=== PATIENT | male | born 1990 | race Asian ===

== ENCOUNTER 2020-10-04 08:45 | Outpatient (REF) | payer OTHER, SELFPAY ==
[2020-10-04 12:00] LABS: Alanine Aminotransferase 35 U/L (0-40); Albumin Level 4.4 g/dL (3.5-5.0); Alkaline Phosphatase 110 U/L (39-117); Anion Gap 12 (12-20); Aspartate Amino Transferase 22 U/L (5-37); Bilirubin Total 0.8 mg/dL (0.0-1.0); Blood Urea Nitrogen 14 mg/dL (9-16); Calcium 9.7 mg/dL (8.4-10.2); Carbon Dioxide 25 mmol/L (22-29); Chloride 96 mmol/L (96-108); Cholesterol 144 mg/dL; Estimated Glomerular Filt Rate > 60; Glucose Random 265 mg/dL (60-115); HDL Cholesterol 28 mg/dL; Potassium 4.2 mmol/L (3.3-5.1); Sodium 129 mmol/L (135-145); Total Protein 7.9 g/dL (6.5-8.0); Triglycerides 571 mg/dL
[2020-10-04 12:05] LABS: TSH reflex Free T4 0.79 uIU/mL (0.32-4.0)
== END 2020-10-04 08:46 | disposition home or self-care (01) ==
LOC: HO.WFDLDS 08:45
PROVIDERS: Visit Provider Family Medicine
DX: Z00.00 Encounter for general adult medical examination without abnormal findings (principal)
CPT/HCPCS: 36415; 80053; 80061; 84443

== ENCOUNTER 2021-06-09 10:53 | Outpatient (REF) | payer OTHER, SELFPAY ==
[2021-06-09 14:02] LABS: Estimated Average Glucose 263 mg/dL; Hemoglobin A1c % 10.8 %
[2021-06-09 14:21] LABS: Alanine Aminotransferase 38 U/L (0-40); Albumin Level 4.6 g/dL (3.5-5.0); Alkaline Phosphatase 103 U/L (39-117); Anion Gap 13 (12-20); Aspartate Amino Transferase 23 U/L (5-37); Blood Urea Nitrogen 12 mg/dL (9-16); Carbon Dioxide 24 mmol/L (22-29); Chloride 101 mmol/L (96-108); Cholesterol 140 mg/dL; Estimated Glomerular Filt Rate > 60; Glucose Fasting 305 mg/dL (60-99); HDL Cholesterol 28 mg/dL; LDL Cholesterol Calculated 86 mg/dl; Potassium 4.2 mmol/L (3.3-5.1); Sodium 134 mmol/L (135-145); Total Protein 8.2 g/dL (6.5-8.0); Triglycerides 131 mg/dL
== END 2021-06-09 10:54 | disposition home or self-care (01) ==
LOC: HO.WFDLDS 10:53
PROVIDERS: Visit Provider Family Medicine
DX: Z00.00 Encounter for general adult medical examination without abnormal findings (principal); R73.01 Impaired fasting glucose
CPT/HCPCS: 36415; 80053; 80061; 83036

== ENCOUNTER 2021-07-19 11:12 | Outpatient (REF) | payer OTHER, SELFPAY ==
[2021-07-19 13:55] LABS: Estimated Average Glucose 275 mg/dL; Hemoglobin A1c % 11.2 %
[2021-07-19 13:58] LABS: Amylase 42 U/L (28-100); Lipase 75 U/L (8-78)
== END 2021-07-19 11:13 | disposition home or self-care (01) ==
LOC: HO.WFDLDS 11:12
PROVIDERS: Visit Provider Hospitalist
DX: R10.13 Epigastric pain (principal); E11.65 Type 2 diabetes mellitus with hyperglycemia
CPT/HCPCS: 36415; 82150; 83036; 83690

== ENCOUNTER → 2021-10-16 09:23 | Outpatient (BNVA) | payer OTHER, SELFPAY | PROVIDERS: PCP Family Medicine; Referring Provider Family Medicine; Visit Provider Internal Medicine Gastroenterology | DX: K21.00 Gastro-esophageal reflux disease with esophagitis, without bleeding (principal) | CPT/HCPCS: 99202 ==

== ENCOUNTER 2021-10-31 09:19 | Outpatient (REF) | payer OTHER, SELFPAY ==
[2021-11-04 10:04] LABS: H Pylori Breath Test Positive (Negative)
== END 2021-10-31 09:20 | disposition home or self-care (01) ==
LOC: HO.LNP 09:19
PROVIDERS: PCP Family Medicine; Referring Provider Family Medicine; Visit Provider Internal Medicine Gastroenterology
DX: R10.13 Epigastric pain (principal); Z11.0 Encounter for screening for intestinal infectious diseases
CPT/HCPCS: 83013; 99211

== ENCOUNTER 2022-02-16 09:59 | Outpatient (REF) | payer OTHER, SELFPAY ==
[2022-02-18 10:14] LABS: H Pylori Breath Test Negative (Negative)
== END 2022-02-16 10:00 | disposition home or self-care (01) ==
LOC: CF 09:59
PROVIDERS: Visit Provider Internal Medicine Gastroenterology
DX: R10.13 Epigastric pain (principal); Z11.0 Encounter for screening for intestinal infectious diseases
CPT/HCPCS: 36415; 83013; 99212

== ENCOUNTER 2022-06-22 11:14 | Outpatient (REF) | payer OTHER, SELFPAY ==
[2022-06-22 14:46] LABS: Appearance Urine Clear; Color Urine Yellow; Glucose Urine UA Negative (Negative); Leukocyte Esterase Urine Negative (Negative); Nitrite Urine Negative (Negative); Specific Gravity - Urine <= 1.005 (1.005-1.025); Urine Blood Negative (Negative); Urine Ketones Negative (Negative); Urine Protein Negative (Neg-Trace)
[2022-06-22 15:05] LABS: Estimated Average Glucose 146 mg/dL; Hemoglobin A1c % 6.7 %
[2022-06-22 16:00] LABS: Creatinine Urine 21.99 mg/dL; Microalbumin Urine < 5.0 mg/L
[2022-06-22 16:18] LABS: Alanine Aminotransferase 24 U/L (0-40); Albumin Level 4.9 g/dL (3.5-5.0); Alkaline Phosphatase 69 U/L (39-117); Anion Gap 14 (12-20); Aspartate Amino Transferase 19 U/L (5-37); Bilirubin Total 0.5 mg/dL (0.0-1.0); Blood Urea Nitrogen 11 mg/dL (9-16); Calcium 10.3 mg/dL (8.4-10.2); Carbon Dioxide 26 mmol/L (22-29); Chloride 106 mmol/L (96-108); Cholesterol 117 mg/dL; Estimated Glomerular Filt Rate > 60; Glucose Fasting 103 mg/dL (60-99); HDL Cholesterol 30 mg/dL; LDL Cholesterol Calculated 74 mg/dl; Potassium 4.4 mmol/L (3.3-5.1); Prostate Specific Antigen Scr 0.51 ng/mL (<0.05-4.0); Sodium 142 mmol/L (135-145); TSH reflex Free T4 0.68 uIU/mL (0.32-4.0); Total Protein 8.1 g/dL (6.5-8.0); Triglycerides 67 mg/dL
== END 2022-06-22 11:15 | disposition home or self-care (01) ==
LOC: HO.WFDLDS 11:14
PROVIDERS: Visit Provider Family Medicine
DX: Z00.00 Encounter for general adult medical examination without abnormal findings (principal); Z12.5 Encounter for screening for malignant neoplasm of prostate; R73.01 Impaired fasting glucose; I10 Essential (primary) hypertension
CPT/HCPCS: 36415; 80053; 80061; 81003; 82043; 83036; 84153; 84443

== ENCOUNTER → 2022-08-31 13:16 | Outpatient (BNVA) | payer OTHER, SELFPAY | PROVIDERS: PCP Family Medicine; Visit Provider Internal Medicine Endocrinology, Diabetes & Metabolism | DX: E11.65 Type 2 diabetes mellitus with hyperglycemia (principal); Z79.84 Long term (current) use of oral hypoglycemic drugs | CPT/HCPCS: 82947; 99202 ==

== ENCOUNTER 2022-09-07 11:41 | Outpatient (REF) | payer OTHER, SELFPAY ==
[2022-09-10 16:29] LABS: TS Negative Control Passed; TS Panel A 9; TS Panel B 12; TS Positive Control Passed; TSpotTB Positive (Negative)
== END 2022-09-07 11:42 | disposition home or self-care (01) ==
LOC: HO.WFDLDS 11:41
PROVIDERS: Visit Provider Family Medicine
DX: Z11.1 Encounter for screening for respiratory tuberculosis (principal); Z20.1 Contact with and (suspected) exposure to tuberculosis
CPT/HCPCS: 36415; 86481

== ENCOUNTER → 2022-09-26 10:53 | Outpatient (BNVA) | payer OTHER, SELFPAY | PROVIDERS: PCP Family Medicine; Visit Provider Internal Medicine | DX: Z22.7 Latent tuberculosis (principal) | CPT/HCPCS: 99212 ==

== ENCOUNTER 2022-10-26 10:49 | Outpatient (REF) | payer OTHER, SELFPAY ==
[2022-10-26 12:52] LABS: Alanine Aminotransferase 34 U/L (0-40); Albumin Level 4.9 g/dL (3.5-5.0); Alkaline Phosphatase 64 U/L (39-117); Aspartate Amino Transferase 27 U/L (5-37); Bilirubin Direct 0.2 mg/dL (0.0-0.5); Bilirubin Total 0.7 mg/dL (0.0-1.0); Total Protein 7.8 g/dL (6.5-8.0)
== END 2022-10-26 10:50 | disposition home or self-care (01) ==
LOC: HO.LAB 10:49
PROVIDERS: PCP Family Medicine; Visit Provider Internal Medicine
DX: Z22.7 Latent tuberculosis (principal)
CPT/HCPCS: 36415; 80076

== ENCOUNTER → 2022-11-09 10:26 | Outpatient (BNVA) | payer OTHER, SELFPAY | PROVIDERS: Visit Provider Internal Medicine | DX: Z22.7 Latent tuberculosis (principal) | CPT/HCPCS: 99212 ==

== ENCOUNTER 2023-02-13 10:54 | Outpatient (REF) | payer OTHER, SELFPAY ==
[2023-02-13 14:58] LABS: Alanine Aminotransferase 23 U/L (0-40); Albumin Level 4.7 g/dL (3.5-5.0); Alkaline Phosphatase 65 U/L (39-117); Aspartate Amino Transferase 25 U/L (5-37); Bilirubin Direct 0.4 mg/dL (0.0-0.5); Total Protein 8.1 g/dL (6.5-8.0)
== END 2023-02-13 10:55 | disposition home or self-care (01) ==
LOC: HO.WFDLDS 10:54
PROVIDERS: Visit Provider Internal Medicine
DX: Z22.7 Latent tuberculosis (principal)
CPT/HCPCS: 36415; 80076

== ENCOUNTER 2023-03-18 11:17 | Outpatient (AMB) | payer OTHER, SELFPAY ==
[2023-03-18 11:23] VITALS: BP 122/70; PULSE 74; O2SAT 99; BMI 26.6
--- NOTE | 2023-03-18 11:23 | MHC.OFFVIS ---
Intake Vital Signs 03/18/23 11:23 Height 5 ft 3 in Weight 150 lb BMI 26.6 BP 122/70 Blood Pressure Location Lt brachial Position Sitting Pulse 74 Pulse Source Pulse Oximeter Pulse Oximetry (%) 99 Intake Visit Reasons: F/U 4 mth,medication Allergies No Known Allergies Allergy (Verified 03/18/23 11:24) HPI F/U 4 mth,medication HPI Details He has finished 5/6-9 months treatment for latent TB. He has no interest in completing more than six due to some leg spasms and about three times a week numbness. PFSH Surgical History Hx of colonoscopy H/O esophagogastroduodenoscopy Family History Mother Diabetes Father No problems noted. Social History Household Members: Family Housing: House Alcohol intake: current Patient Tobacco Use Status: Former Tobacco user e-Cigarette/Vaping Use: Never Used Second Hand Smoke Exposure: No Current occupational status: employed Current occupational exposures/hazards: No Cognitive needs: No Hearing needs: No Vision needs: No Review of Systems Const All systems reviewed & are unremarkable except as noted in HPI and below Physical Exam Vital Signs: Last Vital Signs Pulse 74 03/18/23 11:23 BP 122/70 03/18/23 11:23 Pulse Ox 99 03/18/23 11:23 BMI result Body Mass Index 26.6 Const General: cooperative Orientation/consciousness: patient oriented x3 HEENT Head: Yes normal to inspection Mouth: Normal oral and palatal mucosa present Eyes General: appearance normal, both eyes and all related structures Pupils: Equal, round and reactive pupils present Resp Effort & Inspection: normal respiratory effort Cardio Rate: regular rate Rhythm: regular rhythm GI Palpation (GI): Soft to palpation and nontender General: Yes no CVA tenderness Back/Spine/Pelvis Back: no CVA tenderness Skin General skin exam: no rashes or lesions noted Neuro General: patient oriented x3 Cranial nerves: Yes CN's II-XII intact bilaterally and Yes Equal, round and reactive pupils present Extrem General: Yes normal to inspection Psych Appearance: grossly normal Assessment & Plan Assessment & Plan (1) Latent tuberculosis: Comment: He is tolerating medication Code(s): Z22.7 - Latent tuberculosis Plan: Stop INH and B6 next month. Follow with PCP. He was given a work note not needing any more medication at this time. Coding Level of Care Code Est Pt Level 3 (39548) Diagnoses Latent tuberculosis Z22.7
== END 2023-03-18 12:03 | disposition home or self-care (01) ==
LOC: HO.HID 11:17
PROVIDERS: Visit Provider Internal Medicine
DX: Z22.7 Latent tuberculosis (principal)
CPT/HCPCS: 99213

== ENCOUNTER → 2023-03-18 11:17 | Outpatient (BNVA) | payer OTHER, SELFPAY | PROVIDERS: Visit Provider Internal Medicine | DX: Z22.7 Latent tuberculosis (principal) | CPT/HCPCS: 99212 ==

== ENCOUNTER 2023-03-25 10:45 | Outpatient (AMB) | payer OTHER, SELFPAY ==
[2023-03-25 10:49] VITALS: BP 120/74; PULSE 69; O2SAT 98; BMI 25.9
--- NOTE | 2023-03-25 10:49 | MHC.PC.OV ---
Vital Signs 03/25/23 10:49 Height 5 ft 3 in Weight 146 lb 6 oz BMI 25.9 BP 120/74 Blood Pressure Location Lt brachial Position Sitting Pulse 69 Pulse Source Pulse Oximeter Pulse Oximetry (%) 98 Oxygen Delivery Method Room Air Intake Visit Reasons: f/u diabetes Intake Note: Patient is here to follow up on his diabetes. Patient is concerned about hair loss. Allergies No Known Allergies Allergy (Verified 03/25/23 10:51) Medication List - Last Reconciled 03/25/23 by Alex Mixon MD blood sugar diagnostic (FreeStyle Lite Strips) DX: E11.9, test blood sugar 2 times a day, 90 days 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 meter (FreeStyle Lite Meter kit) DX: E11.9, test blood sugar 2 times a day, duration 999 days gemfibrozil 600 mg PO BID 90 days isoniazid 300 mg PO DAILY 30 days lancets (FreeStyle Lancets) As directed latanoprost 0.005% 1 drp ophthalmic (eye) QPM metformin 250 mg a.m. and 500 mg p.m. orally 2 times a day; 90 days pyridoxine (vitamin B6) 50 mg PO DAILY 30 days Tobacco use date assessed: 09/07/22 Dental Screening Dental Screen Date: 03/25/23 Did you have a dental visit in the last 12 months?: No Did you have a dental problem in the last 6 months where you did not have access to dental care?: No Was dental information given to patient?: Yes HPI f/u diabetes HPI Details 32 y/o male presents to f/u diabetes. Last A1c 12/18/22 6.1%. He had mentioned he thinks medication was causing forgetfulness but declined to make any changes. A1c today 03/25/23 6.3%. He is on metformin. [facility] Surgical History Hx of colonoscopy H/O esophagogastroduodenoscopy Family History (Updated 03/25/23 @ 10:55 by Khushbu Hansen CMA) Mother Diabetes Father No problems noted. 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 Current occupational exposures/hazards: No Cognitive needs: No Hearing needs: No Vision needs: No Questionnaire PHQ-9 Over the last 2 weeks, how often have you been bothered by any of the following problems? 1. Little interest or pleasure in doing things: not at all 2. Feeling down, depressed, or hopeless: not at all 3. Trouble falling or staying asleep, or sleeping too much: not at all 4. Feeling tired or having little energy: not at all 5. Poor appetite or overeating: not at all 6. Feeling bad about yourself - or that you are a failure or have let yourself or your family down: not at all 7. Trouble concentrating on things, such as reading the newspaper or watching television: not at all 8. Moving or speaking so slowly that other people could have noticed. Or the opposite - being so fidgety or restless that you have been moving around a lot more than usual: not at all 9. Thoughts that you would be better off or of hurting yourself in some way: not at all Total score: 0 Source: Developed by Drs. Rell Ballesteros, Leonor Guthrie, Richard Ford and colleagues, with an educational jesus from [employer]. Thrive Questionnaire Date Thrive assessed: 03/25/23 I am a: Patient What is your living situation today?: I have a steady place to live Within the past 12 months, did the food you bought not last and you didn't have the money to get more?: Never true Within the past 12 months, did you worry whether your food would run out before you got money to buy more?: Never true Do you have trouble paying for medicines?: No Do you have trouble getting transportation to medical appointments?: No Do you have trouble paying your heating and electricity bill?: No Do you have trouble taking care of your child, family member or friend?: No Do you have trouble with day-to-day activities such as bathing, preparing meals, shopping, managing finances, etc.?: No Are you currently unemployed and looking for a job?: No AUDIT C Alcohol Use Questionnaire (AUDIT-C) 1. How often do you have a drink containing alcohol?: Monthly or less 2. How many drinks containing alcohol do you have on a typical day when you are drinking?: 1 or 2 3. How often do you have six or more drinks on one occasion?: Never Total Score: 1 LUIS-7 AMB Questionnaire LUIS-7 Date LUSI - 7 assessed: 03/25/23 Feeling nervous, anxious, or on edge: 0 = Not at all Not being able to stop or control worryin = Not at all Worrying too much about different things: 0 = Not at all Trouble relaxin = Not at all Being so restless that it is hard to sit still: 0 = Not at all Becoming easily annoyed or irritable: 0 = Not at all Feeling afraid as if something awful might happen: 0 = Not at all Total LUIS-7 score (0-4 normal; 5-9 mild; 10-14 moderate; 15-21 severe): 0 Source: Developed by Drs. Rell Ballesteros, Leonor Guthrie, Richard Ford and colleagues, with an educational jesus from [employer]. Review of Systems Const Denies chills, Denies fatigue, Denies fever(s), Denies headache(s) and Denies weakness ENT Denies dizziness and Denies headache(s) Card Denies dyspnea Resp Denies cough, Denies dyspnea, Denies wheezing and Denies other (shortness of breath) Musc Denies numbness and Denies tingling Neuro Denies dizziness, Denies headache(s), Denies numbness, Denies tingling and Denies weakness Psych Denies anxiety and Denies depression Endo Denies fatigue Aller/Immun Denies wheezing Physical exam (Primary Care) Vital Signs: Last Vital Signs Pulse 69 03/25/23 10:49 BP 120/74 03/25/23 10:49 Pulse Ox 98 03/25/23 10:49 Oxygen Delivery Method Room Air 03/25/23 10:49 BMI result Body Mass Index 25.9 Tobacco/Smoking Status: Tobacco use Status Tobacco use date assessed 09/07/22 03/25/23 11:01 Patient Tobacco Use Status Former Tobacco user 03/25/23 11:01 e-Cigarette/Vaping Use Never Used 03/25/23 11:01 PHQ-9: PHQ-9 Score PHQ-9: Total score 0 03/25/23 11:12 Thrive Assessment: Date of Thrive Assessment Date Thrive assessed 03/25/23 03/25/23 11:01 Const General: well developed; No acute distress Nutritional Appearance: well nourished Orientation/consciousness: patient oriented x3 HENMT Head: Yes normocephalic and Yes atraumatic Eyes General: appearance normal, both eyes and all related structures Pupils: Equal, round and reactive pupils present EOM: EOMs intact bilaterally Resp Effort & Inspection: normal respiratory effort Neuro General: patient oriented x3 and gait normal Cranial nerves: Yes Equal, round and reactive pupils present Psych Affect: normal affect Results AMB Hemoglobin A1c AMB Hemoglobin A1c 6.3 % Last Edit by Khushbu Hansen CMA on 03/25/23 11:11 Results Reviewed Results Reviewed: Laboratory Last Values Hgb A1c (Clinic) 6.3 % (4.0-6.0) H 03/25/23 11:06 Assessment and Plan Assessment & Plan (1) Diabetes type 2, controlled: Code(s): E11.9 - Type 2 diabetes mellitus without complications Plan: A1c increased from 6.1% to 6.3% but is still well controlled. Goal is less than 7.0% Continue metformin He had noted that metformin made him feel a little mentally ?foggy? Declines a change in medication. Also he is on treatment for TB. He will let me know if fogginess continues after he has finished this next month. 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 No follicular infections no fungal infection. No acute scarring. Can try Rogaine (3) Latent tuberculosis: Comment: He is tolerating medication Code(s): Z22.7 - Latent tuberculosis Plan: Finishing up treatment for latent TB Continue ice in eyes it until the end of the months as recommended by Infectious Disease. (4) Difficulty sleeping: Code(s): G47.9 - Sleep disorder, unspecified Plan: Some difficulty with falling asleep. He can try occasional melatonin Orders: Orders Comprehensive [place]. Panel Fast Today Z00.00 - Encounter for general adult medical examination without abnormal findings Lipid Panel Today Z00.00 - Encounter for general adult medical examination without abnormal findings Microalbumin, Random (w Creat) Today I10 - Essential (primary) hypertension UA and rflx microscopic Today Z00.00 - Encounter for general adult medical examination without abnormal findings TSH reflex Free T4 Today Z00.00 - Encounter for general adult medical examination without abnormal findings AMB Hemoglobin A1c Today Z13.9 - Encounter for screening, unspecified Medications: New minoxidil 5% (Rogaine) 1 ea topical DAILY 30 days 60 grams 2RF Coding Level of Care Code Est Pt Level 4 (47078) Diagnoses Diabetes type 2, controlled E11.9 Hair loss L65.9 Latent tuberculosis Z22.7 Difficulty sleeping G47.9
== END 2023-03-25 12:01 | disposition home or self-care (01) ==
PROVIDERS: Visit Provider Family Medicine
DX: E11.9 Type 2 diabetes mellitus without complications (principal); L65.9 Nonscarring hair loss, unspecified; Z22.7 Latent tuberculosis; G47.9 Sleep disorder, unspecified
CPT/HCPCS: 83036; 99214

== ENCOUNTER 2023-08-19 09:31 | Outpatient (AMB) | payer OTHER, SELFPAY ==
[2023-08-19 10:09] VITALS: BP 136/80; PULSE 80; RESP 13; TEMP 36.4; O2SAT 99; BMI 26.1
--- NOTE | 2023-08-19 10:09 | MHC.PC.OV ---
Vital Signs 08/19/23 10:09 Height 5 ft 3 in Weight 147 lb 4 oz BMI 26.1 BP 136/80 Blood Pressure Location Rt brachial Position Sitting Respiration 13 Pulse 80 Pulse Source Pulse Oximeter Temp 97.6 F Temp Source Temporal Artery Scan Pulse Oximetry (%) 99 Oxygen Delivery Method Room Air Intake Visit Reasons: [place], sinus and ear infections [employer] Equipment [employer] Required: No Accompanied by: Self / Same As Patient Allergies No Known Allergies Allergy (Verified 08/19/23 10:27) Medication List - Last Reconciled 08/19/23 by Gareth Mae CNP blood sugar diagnostic (FreeStyle Lite Strips) DX: E11.9, test blood sugar 2 times a day, 90 days 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 meter (FreeStyle Lite Meter kit) DX: E11.9, test blood sugar 2 times a day, duration 999 days gemfibrozil 600 mg PO BID 90 days lancets (FreeStyle Lancets) As directed latanoprost 0.005% 1 drp ophthalmic (eye) QPM metformin 500 mg PO BID 90 days minoxidil 5% (Rogaine) 1 ea topical DAILY 30 days Tobacco use date assessed: 08/19/23 Dental Screening Dental Screen Date: 08/19/23 Did you have a dental visit in the last 12 months?: Yes Did you have a dental problem in the last 6 months where you did not have access to dental care?: No Was dental information given to patient?: Patient has dentist HPI HPI Comments History of Present Illness Details 32-year-old male presents for follow-up visit Was evaluated at [facility] ED on 08/09/2023 for sinus pressure, sinus congestion, headache, nausea, wheezing, and loss of taste. He was diagnosed with sinusitis and otitis media and was prescribed amoxicillin and Zofran. He tested negative for COVID/RSV/influenza. He reports significant improvement with current treatment regimen. Today is his last day on amoxicillin. He reports h/o sinus infections. No current symptoms. He request a referral to ENT for recurrent sinus infection. He states that he has never been evaluated by ENT. [facility] Medical History No pertinent past medical history Surgical History Hx of colonoscopy H/O esophagogastroduodenoscopy Family History Mother Diabetes Father No problems noted. 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 Current occupational exposures/hazards: No Cognitive needs: No Hearing needs: No Vision needs: No Questionnaire Thrive Questionnaire Date Thrive assessed: 03/25/23 LUIS-7 AMB Questionnaire LUIS-7 Date LUIS - 7 assessed: 03/25/23 Source: Developed by Drs. Rell Ballesteros, Leonor Guthrie, Richard Ford and colleagues, with an educational jesus from [employer]. Review of Systems Const Details: Const Denies chills, Denies fatigue, Denies fever(s), Denies headache(s) and Denies weakness ENT Denies dizziness and Denies headache(s) Card Denies chest pain, Denies lightheadedness, Denies dyspnea and Denies other (Palpitations) Resp Denies cough, Denies dyspnea, Denies wheezing and Denies other ( shortness of breath) GI Denies abdominal pain, Denies melena, Denies hematochezia, Denies change in bowel habits, Denies dyspepsia and Denies nausea Denies hematuria and Denies dysuria Musc Denies abnormal gait, Denies myalgias, Denies arthralgias, Denies numbness and Denies tingling Skin/Breast Denies rash, Denies unusual bruising and Denies wounds Neuro Denies abnormal gait, Denies dizziness, Denies headache(s), Denies memory loss, Denies numbness, Denies Sensory deficit (Neuro), Denies tingling and Denies weakness Psych Denies anxiety, Denies depression, Denies memory loss Endo Denies cold intolerance, Denies fatigue, Denies heat intolerance, Denies polydipsia and Denies polyuria Aller/Immun Denies wheezing Physical exam (Primary Care) Vital Signs: Last Vital Signs Temp 97.6 F 08/19/23 10:09 Pulse 80 08/19/23 10:09 Resp 13 02/12/24 10:09 BP 136/80 08/19/23 10:09 Pulse Ox 99 08/19/23 10:09 Oxygen Delivery Method Room Air 08/19/23 10:09 BMI result Body Mass Index 26.1 Tobacco/Smoking Status: Tobacco use Status Tobacco use date assessed 08/19/23 08/19/23 10:20 Patient Tobacco Use Status Former Tobacco user 08/19/23 10:09 e-Cigarette/Vaping Use Never Used 08/19/23 10:09 Thrive Assessment: Date of Thrive Assessment Date Thrive assessed 03/25/23 08/19/23 10:09 Const Other: General: no acute distress and well developed Nutritional Appearance: well nourished Orientation/consciousness: patient oriented x3 HENMT Head is normocephalic Bilateral ear canal and TM are normal Nasal turbinates and oropharynx are pink and moist Sinuses are nontender with palpation No auricular or cervical lymphadenopathy Eyes General: appearance normal, both eyes and all related structures Pupils: Equal, round and reactive pupils present EOM: EOMs intact bilaterally Resp Effort & Inspection: normal respiratory effort Auscultation: clear to auscultation bilaterally Cardio Rate: regular rate Rhythm: regular rhythm Heart sounds: S1 normal heart sound present, S2 normal heart sound present, no gallops, no murmurs and no rubs GI Palpation (GI): No Abdominal aortic bruit present, Soft to palpation, nontender, No hepatosplenomegaly present and No Rebound tenderness present Auscultation: normal bowel sounds General: Yes no CVA tenderness Back/Spine/Pelvis Back: no CVA tenderness Cervical Spine: cervical ROM normal and No Cervical spine tenderness Thoracic/Lumbar Spine: thoraco-lumbar ROM normal, No pain with thoraco-lumbar ROM, No thoracic spinal tenderness and No lumbar spinal tenderness Extrem General: Yes normal to inspection, No edema and No calf tenderness Skin General: warm and dry. Normal skin color. Normal skin turgor Neuro General: patient oriented x3, gait normal and no focal neuro deficit Cranial nerves: Yes Equal, round and reactive pupils present Cognition (Neuro): normal cognition Gait exam (Neuro): Normal gait present Sensory Exam: No Sensory deficit (Neuro) Psych Appearance: grossly normal Affect: normal affect Attitude: cooperative Thought process: Normal thought process present Assessment and Plan Assessment & Plan (1) Recurrent sinusitis: Code(s): J32.9 - Chronic sinusitis, unspecified Plan: No acute symptoms Physical exam is benign Encouraged to finish course of antibiotic treatment Referred to ENT as requested Follow-up with PCP as planned Return sooner with new or worsening symptoms Verbalized understanding and agreed with treatment plan Orders: Referrals Ear/Nose/Throat Referral J32.9 - Chronic sinusitis, unspecified Coding Level of Care Code Est Pt Level 3 (49999) Diagnoses Recurrent sinusitis J32.9
== END 2023-08-19 11:02 | disposition home or self-care (01) ==
PROVIDERS: Visit Provider Nurse Practitioner Family
DX: J32.9 Chronic sinusitis, unspecified (principal)
CPT/HCPCS: 99213

== ENCOUNTER 2023-08-19 11:04 | Outpatient (REF) | payer OTHER, SELFPAY ==
[2023-08-19 16:30] LABS: Alanine Aminotransferase 32 U/L (0-40); Albumin Level 4.9 g/dL (3.5-5.0); Alkaline Phosphatase 77 U/L (39-117); Anion Gap 14 (12-20); Aspartate Amino Transferase 26 U/L (5-37); Bilirubin Total 0.9 mg/dL (0.0-1.0); Blood Urea Nitrogen 9 mg/dL (9-16); Calcium 10.1 mg/dL (8.4-10.2); Carbon Dioxide 26 mmol/L (22-29); Chloride 106 mmol/L (96-108); Cholesterol 124 mg/dL (<200); Estimated Glomerular Filt Rate > 60; Glucose Fasting 112 mg/dL (60-99); HDL Cholesterol 35 mg/dL (>40); LDL Cholesterol Calculated 78 mg/dL (<100); Potassium 4.6 mmol/L (3.3-5.1); Sodium 141 mmol/L (135-145); Total Protein 8.4 g/dL (6.5-8.0); Triglycerides 59 mg/dL (<150)
[2023-08-19 16:39] LABS: TSH reflex Free T4 0.96 uIU/mL (0.32-4.0)
== END 2023-08-19 11:05 | disposition home or self-care (01) ==
LOC: HO.WFDLDS 11:04
PROVIDERS: Visit Provider Family Medicine
DX: Z00.00 Encounter for general adult medical examination without abnormal findings (principal)
CPT/HCPCS: 36415; 80053; 80061; 84443

== ENCOUNTER 2023-09-10 10:49 | Outpatient (REF) | payer OTHER, SELFPAY ==
[2023-09-10 14:24] LABS: Appearance Urine Clear; Color Urine Yellow; Glucose Urine UA Negative (Negative); Leukocyte Esterase Urine Negative (Negative); Nitrite Urine Negative (Negative); PH 5.5 (5.0-9.0); Urine Blood Negative (Negative); Urine Ketones Negative (Negative); Urine Protein Negative (Neg-Trace)
[2023-09-10 15:02] LABS: Creatinine Urine 53.31 mg/dL; Microalbumin Urine < 5.0 mg/L
== END 2023-09-10 10:50 | disposition home or self-care (01) ==
LOC: HO.WFDLDS 10:49
PROVIDERS: Visit Provider Family Medicine
DX: Z00.00 Encounter for general adult medical examination without abnormal findings (principal); I10 Essential (primary) hypertension
CPT/HCPCS: 81003; 82043; 82570

== ENCOUNTER 2023-09-18 11:28 | Outpatient (AMB) | payer OTHER, SELFPAY ==
[2023-09-18 11:32] VITALS: BP 118/86; PULSE 79; RESP 13; TEMP 36.4; O2SAT 98; BMI 26.0
--- NOTE | 2023-09-18 11:32 | A.OFFPC_ITS ---
Vital Signs 09/18/23 11:32 Height 5 ft 3 in Weight 147 lb BMI 26.0 BP 118/86 Blood Pressure Location Rt brachial Position Sitting Respiration 13 Pulse 79 Pulse Source Pulse Oximeter Temp 97.6 F Temp Source Temporal Artery Scan Pulse Oximetry (%) 98 Oxygen Delivery Method Room Air Intake Visit Reasons: Extended exam with f/u labs and health maint. 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 HPI Details 32 y/o male presents for an extended exa m with f/u labs and health maintenance. Elevated fasting glucose of 112. Last A1c 6.3% on 03/25/23. Triglycerides 59. TC 124. LDL 78. HDL low at 35. He is on gemfibrozil 600mg b.i.d. A1c today 09/18/23 is 5.9%. Pt notes low blood sugars at home in the morning when he first checks. [facility] Medical History No pertinent past medical history Surgical History Hx of colonoscopy H/O esophagogastroduodenoscopy Family History Mother Diabetes Father No problems noted. 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 Current occupational exposures/hazards: No Cognitive needs: No Hearing needs: No Vision needs: No Questionnaire PHQ-9 Over the last 2 weeks, how often have you been bothered by any of the following problems? 1. Little interest or pleasure in doing things: not at all 2. Feeling down, depressed, or hopeless: not at all 3. Trouble falling or staying asleep, or sleeping too much: not at all 4. Feeling tired or having little energy: not at all 5. Poor appetite or overeating: not at all 6. Feeling bad about yourself - or that you are a failure or have let yourself or your family down: not at all 7. Trouble concentrating on things, such as reading the newspaper or watching television: not at all 8. Moving or speaking so slowly that other people could have noticed. Or the opposite - being so fidgety or restless that you have been moving around a lot more than usual: not at all 9. Thoughts that you would be better off or of hurting yourself in some way: not at all Total score: 0 Depression Screening Interpretation: Negative Depression Screening Done: Yes 34171 - PHQ-9 Billing: Yes Source: Developed by Drs. Rell Ballesteros, Leonor Guthrie, Richard Ford and colleagues, with an educational jesus from [employer]. Thrive Questionnaire Date Thrive assessed: 09/18/23 I am a: Patient What is your living situation today?: I have a steady place to live Within the past 12 months, did the food you bought not last and you didn't have the money to get more?: Never true Within the past 12 months, did you worry whether your food would run out before you got money to buy more?: Never true Do you have trouble paying for medicines?: No Do you have trouble getting transportation to medical appointments?: No Do you have trouble paying your heating and electricity bill?: No Do you have trouble taking care of your child, family member or friend?: No Do you have trouble with day-to-day activities such as bathing, preparing meals, shopping, managing finances, etc.?: No Are you currently unemployed and looking for a job?: No Are you interested in more education?: No Please select the resources that you would like help with: None Currently or been in a relationship where the following occur: no concerns repo rted THRIVE Score: 0 AUDIT C Alcohol Use Questionnaire (AUDIT-C) 1. How often do you have a drink containing alcohol?: Monthly or less 2. How many drinks containing alcohol do you have on a typical day when you are drinking?: 1 or 2 3. How often do you have six or more drinks on one occasion?: Never Total Score: 1 LUIS-7 AMB Questionnaire LUIS-7 Date LUIS - 7 assessed: 09/18/23 Feeling nervous, anxious, or on edge: 0 = Not at all Not being able to stop or control worryin = Not at all Worrying too much about different things: 0 = Not at all Trouble relaxin = Not at all Being so restless that it is hard to sit still: 0 = Not at all Becoming easily annoyed or irritable: 0 = Not at all Feeling afraid as if something awful might happen: 0 = Not at all Total LUIS-7 score (0-4 normal; 5-9 mild; 10-14 moderate; 15-21 severe): 0 Source: Developed by Drs. Rell Ballesteros, Leonor Guthrie, Richard Ford and colleagues, with an educational jesus from [employer]. LUIS-7 Assessment Billing LUIS-7 Assessment Tool: LUIS-7 Assessment 66163 Review of Systems Const Denies chills, Denies fatigue, Denies fever(s), Denies headache(s) and Denies weakness Eyes Denies change in vision ENT Denies dizziness, Denies headache(s), Denies hearing loss, Denies nasal congestion, Denies sinus pain, Denies sinus pressure and Denies sore throat Card Denies chest pain, Denies lightheadedness, Denies dyspnea and Denies other (palpitations) Resp Denies cough, Denies dyspnea and Denies wheezing GI Denies abdominal pain, Denies melena, Denies hematochezia, Denies change in bowel habits, Denies dyspepsia and Denies nausea Denies hematuria and Denies dysuria Musc Denies abnormal gait, Denies myalgias, Denies arthralgias, Denies numbness and Denies tingling Skin/Breast Denies rash, Denies unusual bruising and Denies wounds Neuro Denies abnormal gait, Denies dizziness, Denies headache(s), Denies memory loss, Denies numbness, Denies Sensory deficit (Neuro), Denies tingling and Denies weakness Psych Denies anxiety, Denies depression and Denies memory loss Endo Denies cold intolerance, Denies fatigue, Denies heat intolerance, Denies polydipsia and Denies polyuria Vj/Lymph Denies easy bleeding and Denies easy bruising Aller/Immun Denies wheezing Physical exam (Primary Care) Vital Signs: Last Vital Signs Temp 97.6 F 09/18/23 11:32 Pulse 79 09/18/23 11:32 Resp 13 09/18/23 11:32 BP 118/86 09/18/23 11:32 Pulse Ox 98 09/18/23 11:32 Oxygen Delivery Method Room Air 09/18/23 11:32 BMI result Body Mass Index 26.0 Tobacco/Smoking Status: Tobacco use Status Tobacco use date assessed 08/19/23 09/18/23 11:40 Patient Tobacco Use Status Former Tobacco user 09/18/23 11:40 e-Cigarette/Vaping Use Never Used 09/18/23 11:40 PHQ-9: PHQ-9 Score PHQ-9: Total score 0 09/18/23 12:10 Depression Screening Interpretation: Negative Thrive Assessment: Date of Thrive Assessment Date Thrive assessed 09/18/23 09/18/23 11:40 Currently or been in a relationship where the following occur: no concerns reported Const General: no acute distress, well developed, alert and awake Nutritional Appearance: well nourished Orientation/consciousness: patient oriented x3 HENMT Head: Yes normocephalic and Yes atraumatic Ears: hearing grossly normal bilaterally and TM's normal bilaterally General nose exam: Normal external nose present and Normal nares present Mouth: Normal oral and palatal mucosa present and moist mucous membranes Teeth and gingiva: dentition normal Throat: Yes posterior oropharynx normal Eyes General: appearance normal, both eyes and all related structures Pupils: Equal, round and reactive pupils present and Pupil accommodation reflex normal EOM: EOMs intact bilaterally Neck Neck: Yes normal visual inspection, Yes no lymphadenopathy and Yes trachea midline Thyroid: Thyroid normal Carotids: no bruits Lymphatic: no lymphadenopathy noted Chest Chest palpation & inspection: normal inspection of the chest Resp Effort & Inspection: normal respiratory effort Auscultation: clear to auscultation bilaterally Cardio Rate: regular rate Rhythm: regular rhythm Heart sounds: S1 normal heart sound present, S2 normal heart sound present, no gallops, no murmurs and no rubs Bruits: no abdominal aortic bruits and no carotid bruits GI Palpation (GI): No Abdominal aortic bruit present, Soft to palpation, nontender, No hepatosplenomegaly present and No Rebound tenderness present Auscultation: normal bowel sounds General: Yes no CVA tenderness Back/Spine/Pelvis Back: no CVA tenderness Cervical Spine: cervical ROM normal and No Cervical spine tenderness Thoracic/Lumbar Spine: thoraco-lumbar ROM normal, No pain with thoraco-lumbar ROM, No thoracic spinal tenderness and No lumbar spinal tenderness Skin Lesions: no lesions Rashes: no rashes Trauma: no lacerations or abrasions Wounds: no wounds Nails: normal Neuro General: patient oriented x3 Cranial nerves: Yes Equal, round and reactive pupils present Cognition (Neuro): normal cognition Gait exam (Neuro): Normal gait present Motor exam (neuro): 5/5 motor strength present throughout Sensory Exam: No Sensory deficit (Neuro) Deep tendon reflexes (DTR's): Right patellar reflex intensity grade: 2+ and Left patellar reflex intensity grade: 2+ Extrem General: Yes normal to inspection and No edema Psych Appearance: grossly normal Affect: normal affect Attitude: cooperative Thought process: Normal thought process present Results AMB Hemoglobin A1c AMB Hemoglobin A1c 5.9 % Last Edit by KATELYN Clark on 09/18/23 12:33 Assessment and Plan Assessment & Plan (1) Diabetes type 2, controlled: Code(s): E11.9 - Type 2 diabetes mellitus without complications Plan: A1c?5.9%?which?is?good?control.??Goal?is?less?than?7.0% However,?Patient?notes?low?blood?sugars?at?home.??See?below. Will?decrease?metformin?to?500?mg?a.m.?and?250?mg?p.m.?and?if?he?continues?to?jordan ve?low?blood?sugars?will?decrease?to?500?mg?a.m. Also?will?start?trial?of?Melissa?system?as?below. (2) Hypoglycemia: Code(s): E16.2 - Hypoglycemia, unspecified Plan: Patient?with?diabetes?and?only?on?metformin.??He?is?having?low?blood?sugars?at?n ight. 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 Patient?is?on?gemfibrozil?for?triglycerides?that?have?been?up?over?550 Triglycerides?now?at?59.??He?will?decrease?gemfibrozil?to?once?daily?dosing. He?is?already?exercising?and?I?have?encouraged?him?to?continue?this. He?is?trying?[place]?3?fatty?acids. Will?continue?to?follow (4) Adult general medical exam: Code(s): Z00.00 - Encounter for general adult medical examination without abnormal findings Plan: 32-year-old?male?presents?for?an?extended?exam Orders: Orders AMB Hemoglobin A1c Today E11.9 - Type 2 diabetes mellitus without complications Medications: Changed From metformin 500 mg PO BID 90 days 180 tabs 3RF To metformin 500mg am and 250mg pm 135 tabs 3RF 90 days Coding Level of Care Code Est Pt Level 4 (74777) Diagnoses Diabetes type 2, controlled E11.9 Hypoglycemia E16.2 Low HDL (under 40) E78.6 Adult general medical exam Z00.00 Additional Codes LUIS-7 Assessment Billing - LUIS-7 Assessment Tool: LUIS-7 Assessment 60248 ([id number])
== END 2023-09-18 12:37 | disposition home or self-care (01) ==
PROVIDERS: Visit Provider Family Medicine
DX: Z00.00 Encounter for general adult medical examination without abnormal findings (principal); E11.649 Type 2 diabetes mellitus with hypoglycemia without coma; E78.6 Lipoprotein deficiency
CPT/HCPCS: 83036; 99213; 99395

== ENCOUNTER 2023-12-18 11:19 | Outpatient (AMB) | payer OTHER, SELFPAY ==
--- NOTE | 2023-12-18 11:55 | A.OFFPC_ITS ---
Vital Signs 12/18/23 12:01 Height 5 ft 3 in Weight 145 lb BMI 25.7 BP 118/74 Blood Pressure Location Lt brachial Position Sitting Pulse 72 Pulse Source Pulse Oximeter Pulse Oximetry (%) 98 Oxygen Delivery Method Room Air Intake Visit Reasons: f/u diabetes Intake Note: Patient is here to follow up on diabetes. Patient states that he has had sore for a couple of weeks, and difficulty swallowing, and it's hard to breathe. Allergies No Known Allergies Allergy (Verified 12/18/23 12:05) Medication List - Last Reconciled 12/18/23 by Alex Mixon MD blood sugar diagnostic (FreeStyle Lite Strips) DX: E11.9, test blood sugar 2 times a day, 90 days 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 meter (FreeStyle Lite Meter kit) DX: E11.9, test blood sugar 2 times a day, duration 999 days gemfibrozil 600 mg PO DAILY 90 days lancets (FreeStyle Lancets) As directed latanoprost 0.005% 1 drp ophthalmic (eye) QPM metformin 500mg am and 250mg pm 90 days minoxidil 5% (Rogaine) 1 ea topical DAILY 30 days Tobacco use date assessed: 08/19/23 Dental Screening Dental Screen Date: 09/18/23 HPI f/u diabetes HPI Details 33 y/o male presents to f/u diabetes. Last A1c 09/18/23 5.9%. A1c today 12/18/23 is 6.7%. He is on metformin. He denies any low blood sugars. Pt has complaints of a sore throat. HPI Comments History of Present Illness Details Documentation assistance for Alex Mixon MD, was provided by Gilberto Peña, Road Manager on 12/18/2023 at 12:24 PM EST. I, Dr. Mixon, have read, observed, and verified documentation. PFSH Medical History No pertinent past medical history Surgical History Hx of colonoscopy H/O esophagogastroduodenoscopy Family History Mother Diabetes Father No problems noted. 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. Current occupational exposures/hazards: No Cognitive needs: No Hearing needs: No Vision needs: No Questionnaire Thrive Questionnaire Date Thrive assessed: 09/18/23 LUIS-7 AMB Questionnaire LUIS-7 Date LUIS - 7 assessed: 09/18/23 Source: Developed by Drs. Rell Ballesteros, Leonor Guthrie, Richard Ford and colleagues, with an educational jesus from [employer]. Review of Systems Const Denies chills, Denies fatigue, Denies fever(s), Denies headache(s) and Denies weakness ENT Denies dizziness, Denies headache(s) and Reports sore throat Card Denies dyspnea Resp Denies cough, Denies dyspnea, Denies wheezing and Denies other (shortness of breath) Musc Denies numbness and Denies tingling Neuro Denies dizziness, Denies headache(s), Denies numbness, Denies tingling and Denies weakness Psych Denies anxiety and Denies depression Endo Denies fatigue Aller/Immun Denies wheezing Physical exam (Primary Care) Vital Signs: Last Vital Signs Pulse 72 12/18/23 12:01 BP 118/74 12/18/23 12:01 Pulse Ox 98 12/18/23 12:01 Oxygen Delivery Method Room Air 12/18/23 12:01 BMI result Body Mass Index 25.7 Tobacco/Smoking Status: Tobacco use Status Tobacco use date assessed 08/19/23 12/18/23 11:55 Patient Tobacco Use Status Former Tobacco user 12/18/23 11:55 e-Cigarette/Vaping Use Never Used 12/18/23 11:55 Thrive Assessment: Date of Thrive Assessment Date Thrive assessed 09/18/23 12/18/23 11:55 Const General: well developed; No acute distress Nutritional Appearance: well nourished Orientation/consciousness: patient oriented x3 HENMT Head: Yes normocephalic and Yes atraumatic Eyes General: appearance normal, both eyes and all related structures Pupils: Equal, round and reactive pupils present EOM: EOMs intact bilaterally Resp Effort & Inspection: normal respiratory effort Neuro General: patient oriented x3 and gait normal Cranial nerves: Yes Equal, round and reactive pupils present Psych Affect: normal affect Assessment and Plan Assessment & Plan (1) Diabetes type 2, controlled: Code(s): E11.9 - Type 2 diabetes mellitus without complications Plan: A1c?increased?from?5.9%?to?6.7%?after?decreasing?his?metformin?due?to?hypoglycem ia. Goal?is?less?than?7.0% He?notes?that?he?had?a?Melissa?syst em?temporarily?and?that?he?was?still?getting?low?blood?sugars?around?3 - 4 AM. Continue?metformin?500?mg?dose?in?his?morning?which?is?around?10:00?to?noon?and? he?will?move?his?evening?metformin?250?mg?dose?to?18:00?which?is?his?dinner. He?gets?home?from?work?around?midnight?and?has?not?been?having?a?snack?but?will? do?so. Advised?him?to?check?his?blood?sugars?at?his?morning?and?at?bedtime. (2) Sore throat: Code(s): J02.9 - Acute pharyngitis, unspecified Plan: Sore?throat?which?started?over?2?weeks?ago. No?patchy?exudates? Likely?not?viral?given?course?and?he?had?amoxicillin. He?does?note?he?gets?acid?reflux?also. Possibly?allergic?or?possibly?secondary?to?acid?reflux Trial?omeprazole?and Benadryl?at?bedtime (3) Vision changes: Code(s): H53.9 - Unspecified visual disturbance Plan: Patient?had?been?seeing?an?active directory administrator?but?was?unhappy?with?his?care. Referring?to?new?active directory administrator Orders: Orders AMB Hemoglobin A1c Today Z13.9 - Encounter for screening, unspecified Referrals Ophthalmology Referral E11.9 - Type 2 diabetes mellitus without complications, H53.9 - Unspecified visual disturbance Medications: New omeprazole 40 mg PO DAILY 30 days 30 caps 2RF E11.9 - Type 2 diabetes mellitus without complications diphenhydramine HCl (Benadryl) 25 mg PO DAILY 5 days PRN 5 caps 0RF sleep E11.9 - Type 2 diabetes mellitus without complications Coding Level of Care Code Est Pt Level 3 (46460) Diagnoses Diabetes type 2, controlled E11.9 Sore throat J02.9 Vision changes H53.9
[2023-12-18 12:01] VITALS: BP 118/74; PULSE 72; O2SAT 98; BMI 25.7
== END 2023-12-18 12:40 | disposition home or self-care (01) ==
PROVIDERS: Visit Provider Family Medicine
DX: E11.9 Type 2 diabetes mellitus without complications (principal)
CPT/HCPCS: 83036; 99213

== ENCOUNTER 2024-01-20 11:16 | Outpatient (AMB) | payer OTHER, SELFPAY ==
--- NOTE | 2024-01-20 11:30 | MHC.PC.OV ---
Vital Signs 01/20/24 11:37 Weight 145 lb 4 oz BP 128/92 H Blood Pressure Location Rt brachial Position Sitting Respiration 16 Pulse 57 Pulse Source Pulse Oximeter Temp 97.5 F Temp Source Temporal Artery Scan Pulse Oximetry (%) 98 Oxygen Delivery Method Room Air Intake Visit Reasons: check up for coughing Intake Note: patient here for follow up from [facility]. c/o dry cough. Dietary Services Manager Required: No Allergies No Known Allergies Allergy (Verified 01/20/24 12:25) Medication List - Last Reconciled 01/20/24 by Gareth Mae CNP blood sugar diagnostic (FreeStyle Lite Strips) DX: E11.9, test blood sugar 2 times a day, 90 days 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 meter (FreeStyle Lite Meter kit) DX: E11.9, test blood sugar 2 times a day, duration 999 days 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 meter,continuous (FreeStyle Melissa 3 Melvin) As directed 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 sensor (FreeStyle Melissa 3 Sensor device) As directed gemfibrozil 600 mg PO DAILY 90 days lancets (FreeStyle Lancets) As directed latanoprost 0.005% 1 drp ophthalmic (eye) QPM metformin 500mg am and 250mg pm 90 days omeprazole 40 mg PO DAILY 30 days Tobacco use date assessed: 08/19/23 Dental Screening Dental Screen Date: 09/18/23 HPI HPI Comments History of Present Illness Details 33-year-old male presents for chronic nonproductive cough follow-up He was evaluated by his PCP and was prescribed antihistamine which he took without improvement He was evaluated at [facility] ED on 01/10/2024. He received albuterol treatment with improvement. Lungs were clear to auscultation. COVID-19 negative, chest x-ray without acute findings. He was discharged with albuterol MDI and spacer with instructions of use No history of asthma or copd He notes that he has had nonproductive with initial loss of taste and smell which partially resolved. The cough has been present for the past 3 months. 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 However, she wears a mask while working [facility] Medical History No pertinent past medical history Surgical History Hx of colonoscopy H/O esophagogastroduodenoscopy Family History Mother Diabetes Father No problems noted. 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 Current occupational exposures/hazards: No Cognitive needs: No Hearing needs: No Vision needs: No Questionnaire Thrive Questionnaire Date Thrive assessed: 09/18/23 LUIS-7 AMB Questionnaire LUIS-7 Date LUIS - 7 assessed: 09/18/23 Source: Developed by Drs. Rell Ballesteros, Leonor Guthrie, Richard Ford and colleagues, with an educational jesus from [employer]. Review of Systems Const Details: Const Denies chills, Denies fatigue, Denies fever(s), Denies headache(s) and Denies weakness ENT Reports as per HPI Card Denies chest pain, Denies lightheadedness, Denies dyspnea and Denies other (Palpitations) Resp Reports cough, Denies dyspnea, Denies wheezing and Denies other ( shortness of breath) GI Denies abdominal pain, Denies melena, Denies hematochezia, Denies change in bowel habits, Denies dyspepsia and Denies nausea Denies hematuria and Denies dysuria Musc Denies abnormal gait, Denies myalgias, Denies arthralgias, Denies numbness and Denies tingling Skin/Breast Denies rash, Denies unusual bruising and Denies wounds Neuro Denies abnormal gait, Denies dizziness, Denies headache(s), Denies memory loss, Denies numbness, Denies Sensory deficit (Neuro), Denies tingling and Denies weakness Psych Denies anxiety, Denies depression, Denies memory loss Endo Denies cold intolerance, Denies fatigue, Denies heat intolerance, Denies polydipsia and Denies polyuria Aller/Immun Denies wheezing Physical exam (Primary Care) Vital Signs: Last Vital Signs Temp 97.5 F 01/20/24 11:37 Pulse 57 01/20/24 11:37 Resp 16 01/20/24 11:37 BP 128/92 H 01/20/24 11:37 Pulse Ox 98 01/20/24 11:37 Oxygen Delivery Method Room Air 01/20/24 11:37 Tobacco/Smoking Status: Tobacco use Status Tobacco use date assessed 08/19/23 01/20/24 11:32 Patient Tobacco Use Status Former Tobacco user 01/20/24 11:32 e-Cigarette/Vaping Use Never Used 01/20/24 11:32 Thrive Assessment: Date of Thrive Assessment Date Thrive assessed 09/18/23 01/20/24 11:32 Const Other: General: no acute distress and well developed Nutritional Appearance: well nourished Orientation/consciousness: patient oriented x3 HENMT Head: Yes normocephalic and Yes atraumatic Eyes General: appearance normal, both eyes and all related structures Pupils: Equal, round and reactive pupils present EOM: EOMs intact bilaterally Resp Effort & Inspection: normal respiratory effort Auscultation: inspiratory and expiratory wheezing to auscultation bilaterally Cardio Rate: regular rate Rhythm: regular rhythm Heart sounds: S1 normal heart sound present, S2 normal heart sound present, no gallops, no murmurs and no rubs GI Palpation (GI): No Abdominal aortic bruit present, Soft to palpation, nontender, No hepatosplenomegaly present and No Rebound tenderness present Auscultation: normal bowel sounds General: Yes no CVA tenderness Back/Spine/Pelvis Back: no CVA tenderness Cervical Spine: cervical ROM normal and No Cervical spine tenderness Thoracic/Lumbar Spine: thoraco-lumbar ROM normal, No pain with thoraco-lumbar ROM, No thoracic spinal tenderness and No lumbar spinal tenderness Extrem General: Yes normal to inspection, No edema and No calf tenderness Skin General: warm and dry. Normal skin color. Normal skin turgor Neuro General: patient oriented x3, gait normal and no focal neuro deficit Cranial nerves: Yes Equal, round and reactive pupils present Cognition (Neuro): normal cognition Gait exam (Neuro): Normal gait present Sensory Exam: No Sensory deficit (Neuro) Psych Appearance: grossly normal Affect: normal affect Attitude: cooperative Thought process: Normal thought process present Assessment and Plan Assessment & Plan (1) Cough: Code(s): R05.9 - Cough, unspecified Plan: Nonproductive cough x 3 months Inspiratory and expiratory wheezing to auscultation bilaterally Recent x-ray was unremarkable Likely bronchitis Prednisone. Take as prescribed. Instructed on the risks, benefits, and potential adverse reactions of the medication Continue to use albuterol inhaler as prescribed Referred to pulmonology Follow up with PCP or walk-in clinic with worsening or new symptoms Verbalized understanding agreed with the treatment plan Orders: Referrals Pulmonology Referral R05.9 - Cough, unspecified Medications: New prednisone 40 mg (2 x 20 mg) PO DAILY 5 days 10 tabs 0RF Coding Level of Care Code Est Pt Level 4 (90937) Complex EM visit Add On G2211 Diagnoses Cough R05.9
[2024-01-20 11:37] VITALS: BP 128/92; PULSE 57; RESP 16; TEMP 36.4; O2SAT 98
== END 2024-01-20 12:48 | disposition home or self-care (01) ==
PROVIDERS: Visit Provider Nurse Practitioner Family
DX: R05.9 Cough, unspecified (principal)
CPT/HCPCS: 99214; G2211

== ENCOUNTER 2024-02-05 10:03 | Outpatient (AMB) | payer OTHER, SELFPAY ==
[2024-02-05 10:09] VITALS: BP 130/94; PULSE 63; O2SAT 99; BMI 25.9
--- NOTE | 2024-02-05 10:09 | MHC.OFFVIS ---
Vital Signs 02/05/24 10:09 Height 5 ft 3 in Weight 146 lb 2 oz BMI 25.9 BP 130/94 H Blood Pressure Location Rt brachial Position Sitting Pulse 63 Pulse Source Pulse Oximeter Pulse Oximetry (%) 99 Oxygen Delivery Method Room Air Intake Visit Reasons: Cough Allergies No Known Allergies Allergy (Verified 02/05/24 10:12) HPI HPI Cough: Details: Cornelio is a pleasant 33 year old male, former smoker, with undelying DMII. He was referred by PCP for pulmonary evaluation. 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 He states the following day after exposures symptoms developed. He was evaluated at [facility] on 01/10/24 with question of reactive airway disease vs asthma, given albuterol nebulizer and discharged with albuterol MDI. CXR unremarkable. Symptoms persisted and was seen by PCP on 01/20/24 treated with prednisone and has had complete resolution of cough. He notes this is the first occurence of symptoms. He reports possible seasonal allergies, no allergy testing. He denies prior diagnosis of asthma. He reports daughter with h/o atopic disease, otherwise denies pertinent family history. [facility] Medical History No pertinent past medical history Surgical History Hx of colonoscopy H/O esophagogastroduodenoscopy Family History Mother Diabetes Father No problems noted. 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. Current occupational exposures/hazards: No Cognitive needs: No Hearing needs: No Vision needs: No Review of Systems Const Denies chills, Denies excessive sweating, Denies fever(s), Denies headache(s) and Denies night sweats Eyes Denies dry eyes, Denies irritation and Denies itchy eyes ENT Reports Normal hearing present, Denies headache(s), Denies nasal congestion, Denies nasal discharge, Denies post nasal drip and Denies sore throat Card Denies chest pain, Denies chest pain at rest, Denies chest pain with activity, Denies claudication, Denies leg edema, Denies dyspnea, Denies dyspnea on exertion, Denies orthopnea and Denies paroxysmal nocturnal dyspnea Resp Denies chest congestion, Denies cough, Denies excessive phlegm production, Denies pain on inspiration, Denies pain with cough, Denies dyspnea, Denies dyspnea on exertion, Denies stridor and Denies wheezing Musc Denies myalgias Neuro Reports Normal hearing present and Denies headache(s) Endo Denies excessive sweating Vj/Lymph Denies lymphadenopathy Aller/Immun Denies itchy eyes, Denies seasonal rhinorrhea and Denies wheezing Physical Exam Vital Signs: Last Vital Signs Pulse 63 02/05/24 10:09 BP 130/94 H 02/05/24 10:09 Pulse Ox 99 02/05/24 10:09 Oxygen Delivery Method Room Air 02/05/24 10:09 BMI result Body Mass Index 25.9 Const General: cooperative, healthy appearing, comfortable, no acute distress, well developed and alert Orientation/consciousness: patient oriented x3 Limitations: no limitations HEENT Head: Yes normal to inspection, Yes normocephalic and Yes atraumatic Ears: hearing grossly normal bilaterally and external ears normal Eyes General: appearance normal, both eyes and all related structures Eyelids: Yes eyelids normal Sclerae: sclerae normal EOM: EOMs intact bilaterally Neck Neck: Yes normal visual inspection and Yes no lymphadenopathy Lymphatic: no lymphadenopathy noted Chest Chest palpation & inspection: normal inspection of the chest Resp Effort & Inspection: normal respiratory effort, able to speak in complete sentences, no audible wheezes, no cough, no stridor, not tachypneic, no tripod positioning and no use of accessory muscles Auscultation: clear to auscultation bilaterally Cardio Jugular venous distension: no JVD Rate: regular rate Rhythm: regular rhythm Skin Other: warm, dry General skin exam: no rashes or lesions noted Neuro General: patient oriented x3 Cranial nerves: Yes Normal hearing present Cognition (Neuro): normal cognition Gait exam (Neuro): Normal gait present Extrem General: Yes normal to inspection, Yes capillary refill normal, Yes no clubbing, cyanosis or edema and Yes no pedal edema Psych Appearance: grossly normal and well kempt Speech and movement: Normal speech and movement present and Clear speech present Affect: normal affect Attitude: cooperative Thought process: Normal thought process present Thought content: Normal thought content present Insight: Good insight present (Psych) Judgement: Good judgement present (Psych) Assessment & Plan Assessment & Plan (1) Reactive airway disease: Code(s): J45.909 - Unspecified asthma, uncomplicated Category: Medical (2) Environmental allergies: Code(s): Z91.09 - Other allergy status, other than to drugs and biological substances Category: Medical Plan Cornelio presents for pulmonary evaluation for symptoms suggestive of RAD vs asthma with possible allergic component. Will send for PFT, pt requesting this be performed at [facility]. Will also send for RAST. At this time he reports complete resolution of symptoms. He is aware to call the office if symptoms recur. All questions were answered and patient is in agreement of plan. Will follow up to review results or sooner if needed. Orders: Orders Resp Allergy Profile Region I Today Z91.09 - Other allergy status, other than to drugs and biological substances Complete Blood Count Auto Diff Today Z91.09 - Other allergy status, other than to drugs and biological substances PFT pulmonary function test Today J45.909 - Unspecified asthma, uncomplicated Immunoglobulin E Today Z91.09 - Other allergy status, other than to drugs and biological substances Coding Level of Care Code New Pt Level 3 (93398) Diagnoses Reactive airway disease J45.909 Environmental allergies Z91.09
== END 2024-02-05 10:31 | disposition home or self-care (01) ==
PROVIDERS: Visit Provider Nurse Practitioner Family
DX: J45.909 Unspecified asthma, uncomplicated (principal); Z91.09 Other allergy status, other than to drugs and biological substances
CPT/HCPCS: 99203

== ENCOUNTER → 2024-02-05 10:03 | Outpatient (BNVA) | payer OTHER, SELFPAY | PROVIDERS: Visit Provider Nurse Practitioner Family | DX: J45.909 Unspecified asthma, uncomplicated (principal); Z91.09 Other allergy status, other than to drugs and biological substances | CPT/HCPCS: 99202 ==

== ENCOUNTER 2024-02-05 10:43 | Outpatient (REF) | payer OTHER, SELFPAY ==
[2024-02-05 14:25] LABS: MANUAL DIFF FLAG NO
[2024-02-05 14:41] LABS: Basophils Percent Auto 0.7 % (0-2); Eosinophils Absolute Auto 0.3 X10*3/uL (0.0-0.4); Eosinophils Percent Auto 4.9 % (0-4); Hematocrit 42.6 % (42.0-52.0); Hemoglobin 14.7 g/dl (14.0-18.0); Imm Gran Abs Auto 0.01 X10*3/uL (0.00-0.03); Imm Gran Pct Auto 0.2 % (0.0-0.4); Lymphocytes Percent Auto 34.9 % (20-40); Mean Corpuscular HGB Conc 34.5 g/dl (31.0-36.0); Mean Corpuscular Hemoglobin 31.2 pg (27.0-33.0); Mean Corpuscular Volume 90.4 fL (80.0-98.0); Mean Platelet Volume 11.3 fL (9.4-12.4); Monocytes Absolute Auto 0.6 X10*3/uL (0.1-1.2); Monocytes Percent Auto 9.8 % (2-11); Neutrophils Absolute Auto 2.8 x10*3/uL (2.0-8.3); Neutrophils Percent Auto 49.5 % (45-73); Platelet Count 305 X10*3/uL (160-400); Red Blood Count 4.71 X10*6/uL (4.60-5.80); Red Cell Distribution Width 12.7 % (11.0-16.0); White Blood Count 5.7 X10*3/uL (4.8-10.8)
[2024-02-06 22:08] LABS: Class Alternaria alternata 0; Class Aspergillus fumigatus 0; Class Bermuda Grass 0; Class Birch 2; Class Cat Dander 0; Class Cladosporium herbarum 0; Class Cockroach 0; Class Common Ragweed 0/1; Class Cottonwood 0; Class Derm. pterony 0; Class Dermatophagoides farinae 0; Class Dog Dander 0; Class Elm 0/1; Class Maple Box Elder 0; Class Mountain Cedar 0; Class Mouse Urine Protein 0; Class Mugwort 0; Class Oak 0; Class Penicillium crysogenum 0; Class Rough Pigweed 0; Class Sheep Sorrel 0; Class Sycamore 0; Class Timothy Grass 0; Class Walnut Tree 0; Class White Ash 0; Class White Mulberry 0; D001 IgE D pteronyssinus <0.10 kU/L; D002 - IgE D farinae <0.10 kU/L; E001 - IgE Cat Dander <0.10 kU/L; E005 - IgE Dog Dander <0.10 kU/L; E072-IgE Mouse Urine <0.10 kU/L; G002 IgE Bermuda Grass <0.10 kU/L; G006 - IgE Timothy Grass <0.10 kU/L; I006-IgE Cockroach, German <0.10 kU/L; Immunoglobulin E 71 kU/L (<OR=114); M001 IgE Penicillium chrysogen <0.10 kU/L; M002 - IgE Cladosporium herbar <0.10 kU/L; M003 - IgE Aspergillus fumigat <0.10 kU/L; M006 - IgE Alternaria alternat <0.10 kU/L; T001 IgE Maple/Box Elder <0.10 kU/L; T003 IgE Common Silver Birch 1.68 kU/L; T006 - IgE Cedar, Mountain <0.10 kU/L; T007 - IgE Oak, White <0.10 kU/L; T008 IgE Elm, American 0.18 kU/L; T010 - IgE Walnut <0.10 kU/L; T011 - IgE Maple Leaf Sycamore <0.10 kU/L; T014 - IgE Cottonwood <0.10 kU/L; T015 - IgE Ash, White <0.10 kU/L; T070 - IgE White Mulberry <0.10 kU/L; W001 - IgE Ragweed, Short 0.12 kU/L; W006 - IgE Mugwort <0.10 kU/L; W014 IgE Pigweed, Common <0.10 kU/L; W018 IgE Sheep Sorrel <0.10 kU/L
== END 2024-02-05 10:44 | disposition home or self-care (01) ==
LOC: HO.WFDLDS 10:43
PROVIDERS: Visit Provider Nurse Practitioner Family
DX: Z91.09 Other allergy status, other than to drugs and biological substances (principal)
CPT/HCPCS: 36415; 82785; 85025; 86003

== ENCOUNTER 2024-02-27 10:10 | Outpatient (AMB) | payer OTHER, SELFPAY ==
[2024-02-27 11:04] VITALS: BP 118/74; PULSE 75; RESP 16; TEMP 36.5; O2SAT 99; BMI 25.1
--- NOTE | 2024-02-27 11:04 | A.OFFPC_ITS ---
Vital Signs 02/27/24 11:04 Height 5 ft 4 in Weight 146 lb 2 oz BMI 25.1 BP 118/74 Blood Pressure Location Rt brachial Position Sitting Respiration 16 Pulse 75 Pulse Source Pulse Oximeter Temp 97.7 F Temp Source Tympanic Pulse Oximetry (%) 99 Oxygen Delivery Method Room Air Intake Visit Reasons: f/u diabetes Allergies No Known Allergies Allergy (Verified 02/05/24 10:12) Medication List - Last Reconciled 02/27/24 by Alex Mixon MD blood sugar diagnostic (FreeStyle Lite Strips) DX: E11.9, test blood sugar 2 times a day, 90 days 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 meter (FreeStyle Lite Meter kit) DX: E11.9, test blood sugar 2 times a day, duration 999 days 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 meter,continuous (FreeStyle Melissa 3 Morrison) As directed 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 sensor (FreeStyle Melissa 3 Sensor device) As directed gemfibrozil 600 mg PO DAILY 90 days lancets (FreeStyle Lancets) As directed latanoprost 0.005% 1 drp ophthalmic (eye) QPM metformin 500mg am and 250mg pm 90 days omeprazole 40 mg PO DAILY 30 days Tobacco use date assessed: 08/19/23 Dental Screening Dental Screen Date: 09/18/23 HPI f/u diabetes HPI Details 33 y/o male presents to f/u diabetes. Last A1c 12/18/23 6.7%. A1c today 02/27/24 6.4%. He is on metformin. Pt reports abnormal sense of smell that he describes as a burnt type of smell- sometimes in the morning/evening. He also reports headaches. He also reports a cough. HPI Comments History of Present Illness Details Documentation assistance for Alex Mixon MD, was provided by Gilberto Peña, Director Of Culture on 02/27/2024 at 11:11 AM EST. I, Dr. Mixon, have read, observed, and verified documentation. PFSH Medical History No pertinent past medical history Surgical History Hx of colonoscopy H/O esophagogastroduodenoscopy Family History Mother Diabetes Father No problems noted. 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 Current occupational exposures/hazards: No Cognitive needs: No Hearing needs: No Vision needs: No Questionnaire Thrive Questionnaire Date Thrive assessed: 09/18/23 LUIS-7 AMB Questionnaire LUIS-7 Date LUIS - 7 assessed: 09/18/23 Source: Developed by Drs. Rell Ballesteros, Leonor Guthrie, Richard Ford and colleagues, with an educational jesus from [employer] Review of Systems Const Denies chills, Denies fatigue, Denies fever(s), Denies headache(s) and Denies weakness ENT Denies dizziness and Denies headache(s) Card Denies dyspnea Resp Denies cough, Denies dyspnea, Denies wheezing and Denies other (shortness of breath) Musc Denies numbness and Denies tingling Neuro Denies dizziness, Denies headache(s), Denies numbness, Denies tingling and Denies weakness Psych Denies anxiety and Denies depression Endo Denies fatigue Aller/Immun Denies wheezing Physical exam (Primary Care) Vital Signs: Last Vital Signs Temp 97.7 F 02/27/24 11:04 Pulse 75 02/27/24 11:04 Resp 16 02/27/24 11:04 BP 118/74 02/27/24 11:04 Pulse Ox 99 02/27/24 11:04 Oxygen Delivery Method Room Air 02/27/24 11:04 BMI result Body Mass Index 25.1 Tobacco/Smoking Status: Tobacco use Status Tobacco use date assessed 08/19/23 02/27/24 11:07 Patient Tobacco Use Status Former Tobacco user 02/27/24 11:07 e-Cigarette/Vaping Use Never Used 02/27/24 11:07 Thrive Assessment: Date of Thrive Assessment Date Thrive assessed 09/18/23 02/27/24 11:07 Const General: well developed; No acute distress Nutritional Appearance: well nourished Orientation/consciousness: patient oriented x3 HENMT Head: Yes normocephalic and Yes atraumatic Eyes General: appearance normal, both eyes and all related structures Pupils: Equal, round and reactive pupils present EOM: EOMs intact bilaterally Resp Effort & Inspection: normal respiratory effort Neuro General: patient oriented x3 and gait normal Cranial nerves: Yes Equal, round and reactive pupils present Psych Affect: normal affect Assessment and Plan Assessment & Plan (1) Diabetes type 2, controlled: Code(s): E11.9 - Type 2 diabetes mellitus without complications Plan: A1c?had?increased?from?5.9%?to?6.7%?at?last?visit?but?has?improved?again?to?6.4% .??Goal?is?less?than?7.0%.??Good?control. He?had?been?getting?some?low?blood?sugars?at?night (2) Cough: Code(s): R05.9 - Cough, unspecified Plan: Follow-up?with?Pulmonary?Medicine?as?recommended (3) Headache: Code(s): R51.9 - Headache, unspecified Plan: Patient?has?complaints?of?recurrent?headaches?as?well?as?intermittent?abnormal?b urning?smell Neurologically?intact?today Referred?to?neurology Orders: Referrals Neurology Referral R43.9 - Unspecified disturbances of smell and taste, R51.9 - Headache, unspecified Coding Level of Care Code Est Pt Level 3 (26713) Diagnoses Diabetes type 2, controlled E11.9 Cough R05.9 Headache R51.9
== END 2024-02-27 11:24 | disposition home or self-care (01) ==
PROVIDERS: Visit Provider Family Medicine
DX: E11.9 Type 2 diabetes mellitus without complications (principal); R05.9 Cough, unspecified; R51.9 Headache, unspecified
CPT/HCPCS: 99213

== ENCOUNTER 2024-03-18 09:02 | Outpatient (AMB) | payer OTHER, SELFPAY ==
--- NOTE | 2024-03-18 09:05 | MHC.OFFVIS ---
Vital Signs 03/18/24 09:06 Height 5 ft 3 in Weight 148 lb 2 oz BMI 26.2 BP 132/94 H Blood Pressure Location Rt brachial Position Sitting Pulse 64 Pulse Source Pulse Oximeter Pulse Oximetry (%) 96 Oxygen Delivery Method Room Air Intake Visit Reasons: Cough Allergies No Known Allergies Allergy (Verified 03/18/24 09:08) HPI Comments Details: Cornelio is a pleasant 33 year old male, former smoker, with underlying DMII. 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 At the last visit, he was sent for RAST and PFT. His PFT is scheduled next week at [facility]. He denies any respiratory symptoms at this time. He denies any exacerbations since the last visit. [facility] Medical History No pertinent past medical history Surgical History Hx of colonoscopy H/O esophagogastroduodenoscopy Family History Mother Diabetes Father No problems noted. 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 Current occupational exposures/hazards: No Cognitive needs: No Hearing needs: No Vision needs: No Review of Systems Const Denies chills, Denies excessive sweating, Denies fever(s), Denies headache(s) and Denies night sweats Eyes Denies dry eyes, Denies irritation and Denies itchy eyes ENT Reports Normal hearing present, Denies headache(s), Denies nasal congestion, Denies nasal discharge, Denies post nasal drip and Denies sore throat Card Denies chest pain, Denies chest pain at rest, Denies chest pain with activity, Denies claudication, Denies leg edema, Denies dyspnea, Denies dyspnea on exertion, Denies orthopnea and Denies paroxysmal nocturnal dyspnea Resp Denies chest congestion, Denies cough, Denies excessive phlegm production, Denies pain on inspiration, Denies pain with cough, Denies dyspnea, Denies dyspnea on exertion, Denies stridor and Denies wheezing Musc Denies myalgias Neuro Reports Normal hearing present and Denies headache(s) Endo Denies excessive sweating Vj/Lymph Denies lymphadenopathy Aller/Immun Denies itchy eyes, Denies seasonal rhinorrhea and Denies wheezing Physical Exam Vital Signs: Last Vital Signs Pulse 64 03/18/24 09:06 BP 132/94 H 03/18/24 09:06 Pulse Ox 96 03/18/24 09:06 Oxygen Delivery Method Room Air 03/18/24 09:06 BMI result Body Mass Index 26.2 Const General: cooperative, healthy appearing, comfortable, no acute distress, well developed and alert Nutritional Appearance: obese Orientation/consciousness: patient oriented x3 Limitations: no limitations HEENT Head: Yes normal to inspection, Yes normocephalic and Yes atraumatic Ears: hearing grossly normal bilaterally and external ears normal Eyes General: appearance normal, both eyes and all related structures Eyelids: Yes eyelids normal Sclerae: sclerae normal EOM: EOMs intact bilaterally Neck Neck: Yes normal visual inspection and Yes no lymphadenopathy Lymphatic: no lymphadenopathy noted Chest Chest palpation & inspection: normal inspection of the chest Resp Effort & Inspection: normal respiratory effort, able to speak in complete sentences, no audible wheezes, no cough, no stridor, not tachypneic, no tripod positioning and no use of accessory muscles Auscultation: clear to auscultation bilaterally Cardio Jugular venous distension: no JVD Rate: regular rate Rhythm: regular rhythm Skin Other: warm, dry General skin exam: no rashes or lesions noted Neuro General: patient oriented x3 Cranial nerves: Yes Normal hearing present Cognition (Neuro): normal cognition Gait exam (Neuro): Normal gait present Extrem General: Yes normal to inspection, Yes capillary refill normal, Yes no clubbing, cyanosis or edema and Yes no pedal edema Psych Appearance: grossly normal and well kempt Speech and movement: Normal speech and movement present and Clear speech present Affect: normal affect Attitude: cooperative Thought process: Normal thought process present Thought content: Normal thought content present Insight: Good insight present (Psych) Judgement: Good judgement present (Psych) Assessment & Plan Assessment & Plan (1) Reactive airway disease: Code(s): J45.909 - Unspecified asthma, uncomplicated Category: Medical (2) Environmental allergies: Code(s): Z91.09 - Other allergy status, other than to drugs and biological substances Category: Medical Plan RAST positive for trees and ragweed. Discussed ways to minimize allergy exposure. At this time, he reports respiratory symptoms are controlled. He is aware to call the office if symptoms recur. All questions were answered and patient is in agreement of plan. Will follow up to review results of PFT or sooner if needed. Coding Level of Care Code Est Pt Level 3 (24181) Diagnoses Reactive airway disease J45.909 Environmental allergies Z91.09
[2024-03-18 09:06] VITALS: BP 132/94; PULSE 64; O2SAT 96; BMI 26.2
== END 2024-03-18 09:28 | disposition home or self-care (01) ==
PROVIDERS: Visit Provider Nurse Practitioner Family
DX: J45.909 Unspecified asthma, uncomplicated (principal); Z91.09 Other allergy status, other than to drugs and biological substances
CPT/HCPCS: 99213

== ENCOUNTER → 2024-03-18 09:02 | Outpatient (BNVA) | payer OTHER, SELFPAY | PROVIDERS: Visit Provider Nurse Practitioner Family | DX: Z91.09 Other allergy status, other than to drugs and biological substances (principal); J45.909 Unspecified asthma, uncomplicated | CPT/HCPCS: 99212 ==

== ENCOUNTER 2024-05-28 09:23 | Outpatient (AMB) | payer OTHER, SELFPAY ==
--- NOTE | 2024-05-28 09:33 | MHC.PC.OV ---
Vital Signs 05/28/24 09:35 Height 5 ft 3 in Weight 151 lb 4 oz BMI 26.8 BP 115/75 Blood Pressure Location Rt brachial Position Sitting Respiration 14 Pulse 67 Pulse Source Pulse Oximeter Temp 96.8 F Temp Source Temporal Artery Scan Pulse Oximetry (%) 96 Oxygen Delivery Method Room Air Intake Visit Reasons: f/u diabetes Intake Note: f/u dm Allergies No Known Allergies Allergy (Verified 05/28/24 09:34) Tobacco use date assessed: 08/19/23 Dental Screening Dental Screen Date: 09/18/23 HPI f/u diabetes HPI Details 33 y/o male presents to f/u diabetes. Last A1c 02/27/24 6.4%. He is on metformin Eye exam 12/18/23 shows no diabetic retinopathy. A1c today 6.9%. Pt reports a headache. Has been using tylenol which has not been helping him. Blood pressure today 115/75, 67p. HPI Comments History of Present Illness Details Documentation assistance for Alex Mixon MD, was provided by Gilberto Peña, [employer] Business Process Architect on 05/28/2024 at 10:06 AM EST. I, Dr. Mixon, have read, observed, and verified documentation. [facility] Medical History No pertinent past medical history Surgical History Hx of colonoscopy H/O esophagogastroduodenoscopy Family History Mother Diabetes Father No problems noted. 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 Current occupational exposures/hazards: No Cognitive needs: No Hearing needs: No Vision needs: No Questionnaire Thrive Questionnaire Date Thrive assessed: 09/18/23 LUIS-7 AMB Questionnaire LUIS-7 Date LUIS - 7 assessed: 09/18/23 Source: Developed by Drs. Rell Ballesteros, Leonor Guthrie, Richard Ford and colleagues, with an educational jesus from [employer]. Review of Systems Const Denies chills, Denies fatigue, Denies fever(s), Denies headache(s) and Denies weakness ENT Denies dizziness and Denies headache(s) Card Denies dyspnea Resp Denies cough, Denies dyspnea, Denies wheezing and Denies other (shortness of breath) Musc Denies numbness and Denies tingling Neuro Denies dizziness, Denies headache(s), Denies numbness, Denies tingling and Denies weakness Psych Denies anxiety and Denies depression Endo Denies fatigue Aller/Immun Denies wheezing Physical exam (Primary Care) Vital Signs: Last Vital Signs Temp 96.8 F 05/28/24 09:35 Pulse 67 05/28/24 09:35 Resp 14 05/28/24 09:35 BP 115/75 05/28/24 09:35 Pulse Ox 96 05/28/24 09:35 Oxygen Delivery Method Room Air 05/28/24 09:35 BMI result Body Mass Index 26.8 Tobacco/Smoking Status: Tobacco use Status Tobacco use date assessed 08/19/23 05/28/24 09:36 Patient Tobacco Use Status Former Tobacco user 05/28/24 09:36 e-Cigarette/Vaping Use Never Used 05/28/24 09:36 Thrive Assessment: Date of Thrive Assessment Date Thrive assessed 09/18/23 05/28/24 09:36 Const General: well developed; No acute distress Nutritional Appearance: well nourished Orientation/consciousness: patient oriented x3 HENMT Head: Yes normocephalic and Yes atraumatic Eyes General: appearance normal, both eyes and all related structures Pupils: Equal, round and reactive pupils present EOM: EOMs intact bilaterally Resp Effort & Inspection: normal respiratory effort Neuro General: patient oriented x3 and gait normal Cranial nerves: Yes Equal, round and reactive pupils present Psych Affect: normal affect Coding Level of Care Code Est Pt Level 4 (07683) Diagnoses Diabetes type 2, controlled E11.9 Headache R51.9 Reactive airway disease J45.909 Assessment & Plan Assessment & Plan (1) Diabetes type 2, controlled: Code(s): E11.9 - Type 2 diabetes mellitus without complications Category: Medical Plan: A1c?is?6.9%.??Goal?is?less?than?7% Continue?medication?regimen Work?on?diet?lower?in?sugars?and?starches Encouraged?exercise Recent?diabetic?eye?exam?showed?no?retinopathy (2) Headache: Code(s): R51.9 - Headache, unspecified Category: Medical Plan: Patient?had?complaints?of?headaches?and?changes?in?sense?of?smell?and?was?diagnosed?with?migraines?by?ENT Had?tried?migraine?medications?but?did?like The?those?made?feel. He?is?avoiding?triggers?which?is?helping (3) Reactive airway disease: Code(s): J45.909 - Unspecified asthma, uncomplicated Category: Medical Plan: Had?referred?him?to?pulmonology He?says?he?has?had?pulmonary?function?testing Recommend?he?follow-up?with?pulmonology
[2024-05-28 09:35] VITALS: BP 115/75; PULSE 67; RESP 14; TEMP 36; O2SAT 96; BMI 26.8
== END 2024-05-28 10:22 | disposition home or self-care (01) ==
PROVIDERS: Visit Provider Family Medicine
DX: E11.9 Type 2 diabetes mellitus without complications (principal); R51.9 Headache, unspecified; J45.909 Unspecified asthma, uncomplicated

== ENCOUNTER → 2024-05-28 09:23 | Outpatient (BNVA) | payer OTHER, SELFPAY | PROVIDERS: Visit Provider Family Medicine | DX: E11.9 Type 2 diabetes mellitus without complications (principal); R51.9 Headache, unspecified; J45.909 Unspecified asthma, uncomplicated | CPT/HCPCS: 83036; 99212 ==

== ENCOUNTER → 2024-08-14 10:53 | Outpatient (AMB) | payer OTHER, SELFPAY | END | disposition home or self-care (01) | PROVIDERS: PCP Family Medicine; Visit Provider Family Medicine ==

== ENCOUNTER 2024-08-31 10:44 | Outpatient (AMB) | payer OTHER, SELFPAY ==
--- NOTE | 2024-08-31 10:58 | A.OFFPC_ITS ---
Vital Signs 08/31/24 11:02 Height 5 ft 3 in Weight 151 lb BMI 26.7 BP 116/70 Blood Pressure Location Rt brachial Position Sitting Respiration 14 Pulse 71 Pulse Source Pulse Oximeter Temp 98.1 F Temp Source Oral Pulse Oximetry (%) 96 Oxygen Delivery Method Room Air Intake Visit Reasons: f/u asthma exacerbation Intake Note: f/u asthma pt states he does not feel like he has asthma he was having trouble breathing due to a cold pt states he does not have trouble breathing at the moment.pt aslo state he is not use to this cold weather and seems to catch a cold during the cold seasons. 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: No Allergies No Known Allergies Allergy (Verified 08/31/24 11:00) Medication List - Last Reconciled 08/31/24 by Alex Mixon MD albuterol sulfate 90 mcg/actuation (Ventolin HFA) 2 puffs inhalation Q4-6H PRN 30 days albuterol sulfate 90 mcg/actuation (Proair Digihaler) 1 inh inhalation Q4-6H PRN 30 days blood sugar diagnostic (FreeStyle Lite Strips) DX: E11.9, test blood sugar 2 times a day, 90 days 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 meter (FreeStyle Lite Meter kit) DX: E11.9, test blood sugar 2 times a day, duration 999 days 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 meter,continuous (FreeStyle Melissa 3 [place]) As directed 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 sensor (FreeStyle Melissa 3 Sensor device) As directed cyclobenzaprine 10 mg PO .QHS PRN 7 days gemfibrozil 600 mg PO DAILY 90 days lancets (FreeStyle Lancets) As directed latanoprost 0.005% 1 drp ophthalmic (eye) QPM meloxicam 15 mg PO DAILY 30 days metformin 500 mg PO BID 90 days omeprazole 40 mg PO DAILY 30 days tramadol 50 mg PO DAILY 4 days Tobacco use date assessed: 08/19/23 Dental Screening Dental Screen Date: 09/18/23 HPI f/u asthma exacerbation HPI0 Details 33 y/o male presents to f/u asthma exace rbation. Also presents to f/u diabetes. Last A1c controlled at 6.9%. Had been on prednisone for his asthma exacerbation. A1c today 8.0%. He notes breathing has improved recently. He notes he has had pulmonary testing at [facility] but I do not see any notes from there. He notes they have not contacted him. He reports difficulty swallowing. HPI Comments History of Present Illness Details Documentation assistance for Alex Mixon MD, was provided by Gilberto Peña,? Instructor Adjunct Pharmacy Technician on 08/31/2024 at 11:24 AM EST. I, Dr. Mixon, have read, observed, and verified documentation. ?? [facility] Medical History No pertinent past medical history Surgical History Hx of colonoscopy H/O esophagogastroduodenoscopy Family History Mother Diabetes Father No problems noted. 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 Current occupational exposures/hazards: No Cognitive needs: No Hearing needs: No Vision needs: No Questionnaire PHQ-9 Over the last 2 weeks, how often have you been bothered by any of the following problems? 1. Little interest or pleasure in doing things: not at all Source: Developed by Drs. Rell Ballesteros, Loenor Guthrie, Richard Ford and colleagues, with an educational jesus from [employer]. Thrive Questionnaire Date Thrive assessed: 08/14/24 I am a: Patient What is your living situation today?: I have a steady place to live Within the past 12 months, did the food you bought not last and you didn't have the money to get more?: Never true Within the past 12 months, did you worry whether your food would run out before you got money to buy more?: I choose not to answer this question Do you have trouble paying for medicines?: I choose not to answer this question Do you have trouble getting transportation to medical appointments?: No Do you have trouble paying your heating and electricity bill?: No Do you have trouble taking care of your child, family member or friend?: No Do you have trouble with day-to-day activities such as bathing, preparing meals, shopping, managing finances, etc.?: No Are you currently unemployed and looking for a job?: No Are you interested in more education?: No Please select the resources that you would like help with: None Currently or been in a relationship where the following occur: Made to feel afraid THRIVE Score: 1 LUIS-7 AMB Questionnaire LUIS-7 Date LUIS - 7 assessed: 09/18/23 Source: Developed by Drs. Rell Ballesteros, Leonor Guthrie, Richard Ford and colleagues, with an educational jesus from [employer]. Review of Systems Const Denies chills, Denies fatigue, Denies fever(s), Denies headache(s) and Denies weakness ENT Denies dizziness and Denies headache(s) Card Denies dyspnea Resp Denies cough, Denies dyspnea, Denies wheezing and Denies other (shortness of breath) Musc Denies numbness and Denies tingling Neuro Denies dizziness, Denies headache(s), Denies numbness, Denies tingling and Denies weakness Psych Denies anxiety and Denies depression Endo Denies fatigue Aller/Immun Denies wheezing Physical exam (Primary Care) Vital Signs: Last Vital Signs Temp 98.1 F 08/31/24 11:02 Pulse 71 08/31/24 11:02 Resp 14 08/31/24 11:02 BP 116/70 08/31/24 11:02 Pulse Ox 96 08/31/24 11:02 Oxygen Delivery Method Room Air 08/31/24 11:02 BMI result Body Mass Index 26.7 Tobacco/Smoking Status: Tobacco use Status Tobacco use date assessed 08/19/23 08/31/24 11:01 Patient Tobacco Use Status Former Tobacco user 08/31/24 11:01 e-Cigarette/Vaping Use Never Used 08/31/24 11:01 Thrive Assessment: Date of Thrive Assessment Date Thrive assessed 08/14/24 08/31/24 11:01 Currently or been in a relationship where the following occur: Made to feel afraid Const General: well developed; No acute distress Nutritional Appearance: well nourished Orientation/consciousness: patient oriented x3 HENMT Head: Yes normocephalic and Yes atraumatic Eyes General: appearance normal, both eyes and all related structures Pupils: Equal, round and reactive pupils present EOM: EOMs intact bilaterally Resp Effort & Inspection: normal respiratory effort Neuro General: patient oriented x3 and gait normal Cranial nerves: Yes Equal, round and reactive pupils present Psych Affect: normal affect Results AMB Hemoglobin A1c AMB Hemoglobin A1c 8.0 % Last Edit by Martin Stewart CMA on 08/31/24 11:24 Results Reviewed Results Reviewed: Laboratory Last Values Hgb A1c (Clinic) 8.0 % (4.0-6.0) H 08/31/24 11:23 Coding Level of Care Code Est Pt Level 3 (17804) Diagnoses Asthma exacerbation J45.901 Diabetes type 2, controlled E11.9 Assessment & Plan Assessment & Plan (1) Asthma exacerbation: Code(s): J45.901 - Unspecified asthma with (acute) exacerbation Category: Medical Plan: Bilateral?wheezing?has?resolved?and?patient?says?he?started?feeling?much?better? with?short?course?of?prednisone. Advised?him?to?use?his?albuterol?inhaler?when?needed. Patient?says?he?had?pulmonary?function?testing?at?[facility].??Will?request? the?report (2) Diabetes type 2, controlled: Code(s): E11.9 - Type 2 diabetes mellitus without complications Category: Medical Plan: A1c 8.0%?today.??Significantly?increased?from?previous?check. Goal?is?less?than?7.0%. He?will?increase?metformin?to?500?mg?b.i.d. Continue?to?work?at?a?diet?low?in?sugars?and?starches Advised?weight?loss Orders: Orders AMB Hemoglobin A1c Today E11.9 - Type 2 diabetes mellitus without complications Medications: Changed From metformin 500mg am and 250mg pm 90 days 135 tabs 3RF To metformin 500 mg PO BID 180 tabs 3RF 90 days
[2024-08-31 11:02] VITALS: BP 116/70; PULSE 71; RESP 14; TEMP 36.7; O2SAT 96; BMI 26.7
--- OUTSIDE RECORDS SUMMARY | 2024-08-31 12:07 | XMS_ITS | Data Portability ---
Author Organization VERITO singh, [address] Address [address] [place] [id number] Assessment No assessment recorded. Plan of Treatment Reminders Order Date Submit Date Provider Last Modified By Organization Details Last Modified Time Details Appointments None recorded. Lab measles + mumps + rubella virus IgG panel, QN, serum or plasma 2022 023 [facility], [address] [place], [address], 3 10:06:18 hepatitis B surface Ab, quantitativ e, serum 2022 023 [facility] [address] [place], [address], 3 16:06:45 vzv (varicella- zoster) igg+igm Ab, serum 2022 023 [facility], [address] [place], [address], 3 14:07:20 Mycobacteri um tuberculosi s stimulated gamma interferon, qual, blood 2022 023 [facility]), [address] [place], [address], 3 22:05:57 Referral None recorded. Procedures None recorded. Surgeries None recorded. Imaging None recorded. Medication Orders None recorded. Patient TargetsNo targets recorded. Patient InstructionsNo instructions recorded. Reason for Referral None Reported. Results Created Date Observation Date Name Description Value Unit Range Abnormal Flag Note LastModifiedBy Organization Detail LastModifiedTime 09/03/19 23 09/04/2022 MEASL ES/MU MPS/R UBELL A IMMUN ITY rubella antibodies, IgG 23.10 index immune >0.99 Non-i mmune <0.90 Equiv ocal 0.90 - 0.99 Immun e >0.99 Not Available [facility] ([facility]) [address], [place], [address], 09/04/2022 10:06:18 09/03/19 23 09/04/2022 MEASL ES/MU MPS/R UBELL A IMMUN ITY measles antibodies, IgG 206.0 AU/mL immune >16.4 Negat jaquelin <13.5 Equiv ocal 13.5 - 16.4 Posit jaquelin >16.4 Prese nce of antib odies to Rubeo la is presu mptiv e evide nce of immun ity excep t when acute infec tion is suspe cted. Not Available [facility] ([facility]) [address], [place], [address], 09/04/2022 10:06:18 09/03/19 23 09/04/2022 MEASL ES/MU MPS/R UBELL A IMMUN ITY mumps abs, IgG 286.0 AU/mL immune >10.9 Negat jaquelin <9.0 Equiv ocal 9.0 - 10.9 Posit jaquelin >10.9 A posit jaquelin resul t gener ally indic ates past expos ure to Mumps virus or previ ous vacci natio n. Not Available [facility] ([facility]) [address], [place], [address], 09/04/2022 10:06:18 09/03/19 23 09/04/2022 VARIC LILIAN ZOSTE R ABS, IGG/I GM varicella zoster IgG <135 index immune >165 below low normal Negat jaquelin <135 Equiv ocal 135 - 165 Posit jaquelin >165 A posit jaquelin resul t gener ally indic ates expos ure to the patho gen or admin istra tion of speci fic immun oglob ulins , but it is not indic ation of activ e infec tion or stage of disea se. Not Available [facility] ([facility]) [address], [place], [address], 09/04/2022 14:07:19 09/03/19 23 09/04/2022 VARIC LILIAN ZOSTE R ABS, IGG/I GM varicella-zo ster Ab, IgM <0.91 index 0.00-0 .90 Negat jaquelin <0.91 Borde rline 0.91 - 1.09 Posit jaquelin >1.09 Not Available [facility] ([facility]) [address], [place], [address], 09/04/2022 14:07:19 09/03/19 23 09/04/2022 HEPAT ITIS B SURF AB QUANT hepatitis B surf Ab quant <3.1 mIU/m L immuni ty>9.9 below low normal Statu s of Immun ity Anti- HBs Level ----- ----- ----- --- ----- ----- ---- Incon siste nt with Immun ity 0.0 - 9.9 Consi stent with Immun ity >9.9 Not Available [facility] ([facility]) [address], [place], [address], 09/04/2022 16:06:45 09/03/19 23 09/05/2022 QUANT IFERO N-TB GOLD PLUS quantiferon incubation INCUBA TION PERFOR MED. Not Available [facility] ([facility]) [address], [place], [address], 09/05/2022 22:05:57 09/03/19 23 09/05/2022 QUANT IFERO N-TB GOLD PLUS quantiferon criteria COMMEN T Quant iFERO N-TB Gold Plus is a quali tativ e indir ect test for M tuber culos is infec tion (incl uding disea se) and is inten ded for use in conju nctio n with risk asses sment , radio graph y, and other medic al and diagn ostic evalu ation s. The Quant iFERO N-TB Gold Plus resul t is deter mined by subtr actin g the Nil value from eithe r TB antig en (Ag) value . The Mitog en tube serve s as a contr ol for the test. Not Available [facility] ([facility]) [address] [place], [address], 09/05/2022 22:05:57 09/03/19 23 09/05/2022 QUANT IFERO N-TB GOLD PLUS quantiferon TB1 Ag value 0.72 IU/mL Not Available [facility] ([facility]) [address] [place], [address], 09/05/2022 22:05:57 09/03/19 23 09/05/2022 QUANT IFERO N-TB GOLD PLUS quantiferon TB2 Ag value 1.17 IU/mL Not Available [facility] ([facility]) [address] [place], [address], 09/05/2022 22:05:57 09/03/19 23 09/05/2022 QUANT IFERO N-TB GOLD PLUS quantiferon nil value 0.10 IU/mL Not Available [facility] ([facility]) [address] [place], [address], 09/05/2022 22:05:57 09/03/19 23 09/05/2022 QUANT IFERO N-TB GOLD PLUS quantiferon mitogen value >10.00 IU/mL Not Available [facility] ([facility]) [address] [place], [address], 09/05/2022 22:05:57 09/03/19 23 09/05/2022 QUANT IFERO N-TB GOLD PLUS quantiferon- TB gold plus POSITI VE negati ve abnormal A respo nse to M tuber culos is antig ens has been detec jennifer. If patie nt is at low risk for Tuber culos is, the resul t shoul d be inter prete d with cauti on and repea t testi ng on a new speci men is recom shantal d (ATS/ IDSA/ CDC Clini eagle Pract ice Guide lines , 2017) . False posit eleonora can also occur due to infec tion by Josiah quintero, Josiah keys, or Josiah reyes. Chemi lumin escen ce immun oassa y metho dolog y Not Available [facility] ([facility]) [address], [place], [address], 09/05/2022 22:05:57 Result Notes None recorded. Procedures Surgical History Date Name Laterality Status Provider Name and Address Organization Details Recorded Time 09/04/19 [facility] Send Out Template NON DOT completed PANTERA FRITZ PA - [facility] 09/04/2022 14:56:37 09/03/19 Venipuncture Template completed TJ GARCIA PA - [facility] 09/03/2022 10:33:02 Imaging Results None recorded. Procedure Notes None recorded. Medical Equipment None Reported. Medications Name Sig Start Date Stop Date Status Note LastModified by Organization Details LastModified Time latanoprost 0.005 % eye drops active Not Available Not Available Not Available metformin 500 mg tablet active Not Available Not Available No t Available Vitals None Recorded Social History None recorded. Functional Status None recorded. Mental Status None recorded. Family History Nothing Reported. Medical History No medical history recorded. Immunizations Vaccine Type Date Status Note Provider Nam e and Address Organization Details Recorded Time Tdap 09/03/2022 completed Salome Cat MD [address] [place] [address] [place], [address], [place] - [facility] 09/03/2022 11:45:31 Past Encounters Encounter ID Performer Location Encounter Start Date Encounter Closed Date Diagnosis/Indication Diagnosis SNOMED-CT Code Diagnosis ICD10 Code Diagnosis Note [id number] [place] [address] [facility] [address] [place] [address] 09/03/2022 09:17:47 09/03/2022 11:46:43 Tuberculosis screening 108147832 Z11.1 History an d physical examination, occupation 939243391 Z02.1 Administra tion of diphtheria, pertussis, and tetanus vaccine 173453485 Z23 [id number] Salome Cat MD [address] [facility] [address] [facility] [place], [place] [id number] 09/04/2022 14:40:26 09/04/2022 14:58:07 History and physical examination, occupation 638512883 Z02.1 Health Concerns Section Related Observation LastModified by Organization Detai ls LastModified Time None Recorded Concern Status LastModified by Organization Details LastModified Time None Recorded Advance Directives Directive None Recorded Payers Encounter Date Sequence Insurance Name Policy Number Policy Dodd Covered Member ID Dodd Member ID Guarantor Name 09/03/2022 [facility] Cornelio De La Garza 09/04/2022 [employer] [facility] Cornelio De La Garza
== END 2024-08-31 11:39 | disposition home or self-care (01) ==
PROVIDERS: PCP Family Medicine; Visit Provider Family Medicine
DX: J45.901 Unspecified asthma with (acute) exacerbation (principal); E11.9 Type 2 diabetes mellitus without complications

== ENCOUNTER → 2024-08-31 10:44 | Outpatient (BNVA) | payer OTHER, SELFPAY | PROVIDERS: PCP Family Medicine; Visit Provider Family Medicine | DX: J45.901 Unspecified asthma with (acute) exacerbation (principal); E11.9 Type 2 diabetes mellitus without complications; Z79.84 Long term (current) use of oral hypoglycemic drugs | CPT/HCPCS: 83036; 99212 ==

== ENCOUNTER 2025-01-13 10:46 | Outpatient (AMB) | payer OTHER, SELFPAY ==
--- NOTE | 2025-01-13 11:38 | MHC.PC.OV ---
Vital Signs 01/13/25 11:56 Height 5 ft 3 in Weight 152 lb 6 oz BMI 27.0 BP 143/94 H Blood Pressure Location Rt brachial Position Sitting Respiration 16 Pulse 70 Pulse Source Pulse Oximeter Temp 98.2 F Temp Source Oral Pulse Oximetry (%) 97 Oxygen Delivery Method Room Air Intake Visit Reasons: back injury f/u Intake Note: patient here for follow up on his back injury c/o a lot of back pain Clinical Informatics Manager Required: No Allergies No Known Allergies Allergy (Verified 01/13/25 11:53) Medication List - Last Reconciled 01/13/25 by Alex Mixon MD albuterol sulfate 90 mcg/actuation (Ventolin HFA) 2 puffs inhalation Q4-6H PRN 30 days albuterol sulfate 90 mcg/actuation (Proair Digihaler) 1 inh inhalation Q4-6H PRN 30 days blood sugar diagnostic (FreeStyle Lite Strips) DX: E11.9, test blood sugar 2 times a day, 90 days 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 meter (FreeStyle Lite Meter kit) DX: E11.9, test blood sugar 2 times a day, duration 999 days 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 sensor (FreeStyle Melissa 3 Sensor device) As directed 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,caustic cresylate shift superintendent,cont (FreeStyle Melissa 3 [place]) As directed gemfibrozil 600 mg PO DAILY 90 days lancets (FreeStyle Lancets) As directed latanoprost 0.005% 1 drp ophthalmic (eye) QPM metformin 500 mg PO BID 90 days omeprazole 40 mg PO DAILY 30 days Tobacco use date assessed: 01/13/25 Dental Screening Dental Screen Date: 01/13/25 Did you have a dental visit in the last 12 months?: Yes Did you have a dental problem in the last 6 months where you did not have access to dental care?: No Was dental information given to patient?: Patient has dentist HPI back injury f/u HPI Details 34 y/o male presents to f/u back pain. Has been attending physical therapy for low back pain. Had seen some improvements but still reports ongoing pain/discomfort. Also notes it radiates down to his legs. Has been using tylenol for relief but notes it has not been very effective. HPI Comments History of Present Illness Details Documentation assistance for Alex Mixon MD, was provided by Gilberto Peña,? Access Nurse on 01/13/2025 at 12:52 PM EST. I, Dr. Mixon, have read, observed, and verified documentation. [facility] Medical History No pertinent past medical history Surgical History Hx of colonoscopy H/O esophagogastroduodenoscopy Family History Mother Diabetes Father No problems noted. 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 Current occupational exposures/hazards: No Cognitive needs: No Hearing needs: No Vision needs: No Questionnaire Thrive Questionnaire Date Thrive assessed: 08/14/24 I am a: Patient What is your living situation today?: I have a steady place to live Within the past 12 months, did the food you bought not last and you didn't have the money to get more?: Never true Within the past 12 months, did you worry whether your food would run out before you got money to buy more?: I choose not to answer this question Do you have trouble paying for medicines?: I choose not to answer this question Do you have trouble getting transportation to medical appointments?: No Do you have trouble paying your heating and electricity bill?: No Do you have trouble taking care of your child, family member or friend?: No Do you have trouble with day-to-day activities such as bathing, preparing meals, shopping, managing finances, etc.?: No Are you currently unemployed and looking for a job?: No Are you interested in more education?: No Please select the resources that you would like help with: None Currently or been in a relationship where the following occur: Made to feel afraid THRIVE Score: 1 LUIS-7 AMB Questionnaire LUIS-7 Date LUIS - 7 assessed: 09/18/23 Source: Developed by Drs. Rell Ballesteros, Leonor Guthrie, Richard Ford and colleagues, with an educational jesus from [employer]. Physical exam (Primary Care) Vital Signs: Last Vital Signs Temp 98.2 F 01/13/25 11:56 Pulse 70 01/13/25 11:56 Resp 16 01/13/25 11:56 BP 143/94 H 01/13/25 11:56 Pulse Ox 97 01/13/25 11:56 Oxygen Delivery Method Room Air 01/13/25 11:56 BMI result Body Mass Index 27.0 Tobacco/Smoking Status: Tobacco use Status Tobacco use date assessed 01/13/25 01/13/25 11:59 Patient Tobacco Use Status Former Tobacco user 01/13/25 11:39 e-Cigarette/Vaping Use Never Used 01/13/25 11:39 Thrive Assessment: Date of Thrive Assessment Date Thrive assessed 08/14/24 01/13/25 11:39 Currently or been in a relationship where the following occur: Made to feel afraid Coding Level of Care Code Est Pt Level 3 (77813) Diagnoses Low back pain M54.50 Assessment & Plan Assessment & Plan (1) Low back pain: Code(s): M54.50 - Low back pain, unspecified Category: Medical Plan: Ongoing low back pain despite physical therapy and Tylenol Patient takes omeprazole for GERD/acid reflux and does not tolerate ibuprofen well. Will try celecoxib Ice/heat and continue physical therapy exercises [place] [facility] [place] I do not have the report. Will request this. Referred to [facility] Orders: Orders Comprehensive [place]. Panel Fast Today Z00.00 - Encounter for general adult medical examination without abnormal findings Complete Blood Count Auto Diff Today Z00.00 - Encounter for general adult medical examination without abnormal findings Lipid Panel Today Z00.00 - Encounter for general adult medical examination without abnormal findings TSH reflex Free T4 Today Z00.00 - Encounter for general adult medical examination without abnormal findings UA CC w/rflx Micro + Cult Today Z00.00 - Encounter for general adult medical examination without abnormal findings Microalbumin, Random (w Creat) Today I10 - Essential (primary) hypertension Referrals Orthopedics Referral M54.50 - Low back pain, unspecified Medications: New celecoxib 200 mg PO BID PRN 60 caps 1RF pain 30 days
--- OUTSIDE RECORDS SUMMARY | 2025-01-13 11:50 | XMS_ITS | Data Portability ---
Author Organization VERITO Mixon s, [address] Address [address] [place] [id number] Assessment No assessment recorded. Plan of Treatment Reminders Order Date Submit Date Provider Last Modified By Organization Details Last Modified Time Details Appointments None recorded. Lab measles + mumps + rubella virus IgG panel, QN, serum or plasma 2022 023 [facility], [address] [place], [address], 3 10:06:18 hepatitis B surface Ab, quantitativ e, serum 2022 023 [facility]), [address] [place], [address], 3 16:06:45 vzv (varicella- zoster) igg+igm Ab, serum 2022 023 [facility], [address] [place], [address], 3 14:07:20 Mycobacteri um tuberculosi s stimulated gamma interferon, qual, blood 2022 023 [facility]), [address] [place], [address], 3 22:05:57 Referral None recorded. Procedures None [...] e >0.99 Not Available [facility] ([facility]) [address] [facility], [place], [address], 09/04/2022 10:06:18 09/03/19 23 09/04/2022 MEASL ES/MU MPS/R UBELL A IMMUN ITY measles antibodies, IgG 206.0 AU/mL immune >16.4 Negat jaquelin <13.5 Equiv ocal 13.5 - 16.4 Posit jaquelin >16.4 Prese nce of antib odies to Rubeo la is presu mptiv e evide nce of immun ity excep t when acute infec tion is suspe cted. Not Available [facility] ([facility]) [address] [facility], [place], [address], 09/04/2022 10:06:18 09/03/19 23 09/04/2022 MEASL ES/MU MPS/R UBELL A IMMUN ITY mumps abs, IgG 286.0 AU/mL immune >10.9 Negat jaquelin <9.0 Equiv ocal 9.0 - 10.9 Posit jaquelin >10.9 A posit jaquelin resul t gener ally indic ates past expos ure to Mumps virus or previ ous vacci natio n. Not Available [facility] ([facility]) [address] [facility], [place], [address], 09/04/2022 10:06:18 09/03/19 23 09/04/2022 VARIC LILIAN [...] disea se. Not Available [facility] ([facility]) [address] [place], [address], 09/04/2022 14:07:19 09/03/19 23 09/04/2022 VARIC LILIAN ZOSTE R ABS, IGG/I GM varicella-zo ster Ab, IgM <0.91 index 0.00-0 .90 Negat jaquelin <0.91 Borde rline 0.91 - 1.09 Posit jaquelin >1.09 Not Available [facility] ([facility]) [address] [facility], [place], [address], 09/04/2022 14:07:19 09/03/19 23 09/04/2022 HEPAT ITIS B SURF AB QUANT hepatitis B surf Ab quant <3.1 mIU/m L immuni ty>9.9 below low normal Statu s of Immun ity Anti- HBs Level ----- ----- ----- --- ----- ----- ---- Incon siste nt with Immun ity 0.0 - 9.9 Consi stent with Immun ity >9.9 Not Available [facility] ([facility]) [address] [facility], [place], [address], 09/04/2022 16:06:45 09/03/19 23 09/05/2022 QUANT IFERO N-TB GOLD PLUS quantiferon incubation INCUBA TION PERFOR MED. Not Available [facility] ([facility]) [address] [place], [address], 09/05/2022 22:05:57 09/03/19 23 09/05/2022 QUANT IFERO [...] the test. Not Available [facility] ([facility]) [address] [place], [address], 09/05/2022 22:05:57 09/03/19 23 09/05/2022 QUANT IFERO N-TB GOLD PLUS quantiferon TB1 Ag value 0.72 IU/mL Not Available [facility] ([facility]) [address] [place], [address], 09/05/2022 22:05:57 09/03/19 23 09/05/2022 QUANT IFERO N-TB GOLD PLUS quantiferon TB2 Ag value 1.17 IU/mL Not Available [facility] ([facility]) [address] [place], [address], 09/05/2022 22:05:57 09/03/19 23 09/05/2022 QUANT IFERO N-TB GOLD PLUS quantiferon nil value 0.10 IU/mL Not Available [facility] ([facility]) [address] [place], [address], 09/05/2022 22:05:57 09/03/19 23 09/05/2022 QUANT IFERO N-TB GOLD PLUS quantiferon mitogen value >10.00 IU/mL Not Available [facility] ([facility]) [address] [place], [address], 09/05/2022 22:05:57 09/03/19 23 09/05/2022 QUANT IFERO [...] occur due to infec tion by Josiah marlene quintero, Josiah keys, or Josiah reyes. Chemi lumin escen ce immun oassa y metho dolog y Not Available [facility] ([facility]) [address] [facility], [place], [address], 09/05/2022 22:05:57 Result Notes None recorded. Procedures [...] Time Tdap 09/03/2022 completed Salome Cat MD [address] [place] [address], [phone], [place] - [facility] 09/03/2022 11:45:31 Past Encounters Encounter ID Performer Location Encounter Start Date Encounter Closed Date Diagnosis/Indication Diagnosis SNOMED-CT Code Diagnosis ICD10 Code Diagnosis Note [id number] [place] [address] [facility] [address] [place] [address] 09/03/2022 09:17:47 09/03/2022 11:46:43 Tuberculosis screening 168775502 Z11.1 History an d physical examination, occupation 526273565 Z02.1 Administra tion of diphtheria, pertussis, and tetanus vaccine 654650810 Z23 [id number] Salome Cat MD [address] [facility] [address] [facility] [place] [address] 09/04/2022 14:40:26 09/04/2022 14:58:07 History and physical examination, occupation 387808108 Z02.1 Health Concerns Section Related Observation LastModified by Organization Detai ls LastModified Time None Recorded Concern Status LastModified by Organization Details LastModified Time None Recorded Advance Directives Directive None Recorded Payers Insurance Date Sequence Insurance Name Policy Number Policy Dodd Covered Member ID Dodd Member ID Guarantor Name 09/03/2022 [facility] Cornelio De La Garza 09/04/2022 [employer] Cornelio De La Garza
[2025-01-13 11:56] VITALS: BP 143/94; PULSE 70; RESP 16; TEMP 36.8; O2SAT 97; BMI 27.0
== END 2025-01-13 12:56 | disposition home or self-care (01) ==
LOC: HO.HMCFM 10:47
PROVIDERS: PCP Family Medicine; Visit Provider Family Medicine
DX: M54.50 Low back pain, unspecified (principal)

== ENCOUNTER → 2025-01-13 10:46 | Outpatient (BNVA) | payer OTHER, SELFPAY | PROVIDERS: PCP Family Medicine; Visit Provider Family Medicine | DX: I10 Essential (primary) hypertension (principal); M54.50 Low back pain, unspecified | CPT/HCPCS: 99212 ==

== ENCOUNTER 2025-01-19 12:19 | Outpatient (REF) | payer OTHER, SELFPAY ==
[2025-01-19 16:25] LABS: MANUAL DIFF FLAG NO
[2025-01-19 16:26] LABS: Appearance Urine Clear; Glucose Urine UA Negative (Negative); PH 5.5 (5.0-9.0); Specific Gravity - Urine <= 1.005 (1.005-1.025)
[2025-01-19 16:34] LABS: Hematocrit 45.2 % (42.0-52.0); Hemoglobin 15.7 g/dl (14.0-18.0); Imm Gran Abs Auto 0.03 X10*3/uL (0.00-0.03); Imm Gran Pct Auto 0.4 % (0.0-0.4); Lymphocytes Absolute Auto 2.5 X10*3/uL (1.2-4.9); Mean Corpuscular HGB Conc 34.7 g/dl (31.0-36.0); Mean Corpuscular Hemoglobin 30.8 pg (27.0-33.0); Mean Corpuscular Volume 88.6 fL (80.0-98.0); NRBC Abs Auto 0.000 X10*3/uL (0.0-0.012); NRBC Pct Auto 0.0 /100WBC (0.0-0.2); Platelet Count 369 X10*3/uL (160-400); Red Blood Count 5.10 X10*6/uL (4.60-5.80); White Blood Count 8.3 X10*3/uL (4.8-10.8)
[2025-01-19 17:02] LABS: Alanine Aminotransferase 43 U/L (0-40); Albumin Level 5.0 g/dL (3.5-5.0); Alkaline Phosphatase 97 U/L (39-117); Anion Gap 13 (12-20); Aspartate Amino Transferase 32 U/L (5-37); Blood Urea Nitrogen 11 mg/dL (9-16); Calcium 9.7 mg/dL (8.4-10.2); Carbon Dioxide 25 mmol/L (22-29); Chloride 103 mmol/L (96-108); Cholesterol 145 mg/dL (<200); Estimated Glomerular Filt Rate > 60; HDL Cholesterol 40 mg/dL (>40); Potassium 4.0 mmol/L (3.3-5.1); Sodium 137 mmol/L (135-145); Total Protein 8.1 g/dL (6.5-8.0); Triglycerides 147 mg/dL (<150)
[2025-01-19 17:38] LABS: Microalbum/Creatinine Ratio Ur 41.6 ug/mg cr (<30)
== END 2025-01-19 12:20 | disposition home or self-care (01) ==
LOC: HO.HMGCLDS 12:19
PROVIDERS: PCP Family Medicine; Visit Provider Physician Assistant
DX: Z00.00 Encounter for general adult medical examination without abnormal findings (principal); E11.65 Type 2 diabetes mellitus with hyperglycemia; I10 Essential (primary) hypertension; F40.231 Fear of injections and transfusions; R00.2 Palpitations; R68.2 Dry mouth, unspecified; R11.0 Nausea; Z79.84 Long term (current) use of oral hypoglycemic drugs; Z13.9 Encounter for screening, unspecified
CPT/HCPCS: 36415; 80053; 80061; 81003; 82043; 82570; 82948; 84443; 85025; 99212

== ENCOUNTER 2025-01-19 12:19 | Outpatient (AMB) | payer OTHER, SELFPAY ==
[2025-01-19 12:29] VITALS: BP 136/100; PULSE 64; TEMP 37.2; O2SAT 98; BMI 27.4
--- NOTE | 2025-01-19 12:29 | AM.OFFWIN_ITS ---
Intake Vital Signs 01/19/25 12:29 01/19/25 13:27 01/19/25 13:28 01/19/25 13:28 Height 5 ft 3 in Weight 154 lb 8 oz BMI 27.4 BP 136/100 H 126/100 H 132/100 H 138/100 H Blood Pressure Location Rt brachial Lt brachial Lt brachial Lt brachial Position Sitting Semi Winslow's Sitting Standing Pulse 64 88 77 Pulse Source Pulse Oximeter Pulse Oximeter Pulse Oximeter Temp 98.9 F Temp Source Oral Pulse Oximetry (%) 98 98 98 96 Oxygen Delivery Method Room Air Room Air Room Air Room Air Intake Visit Reasons: EP dry mouth, nausea, not feeling good Intake Note: Patient passed out yesterday at home was taken to [facility] by ambulance where BP was elevated along with blood sugar(319). Was told to contact Primary Patient Tobacco Use Status: Former Tobacco user Allergies No Known Allergies Allergy (Verified 01/19/25 12:35) Do you need a note to return to daycare/school/sports/work: No HPI HPI Comments History of Present Illness Details Patient is a 34yo M who presents to office with unwell feeling He has hx of asthma, DM type 2 on metformin with last A1C of 8 in August, HLD Sees Dr. Mixon for PCP; unable to see today so told to go to ER Blood sugar was 319 yesterday and felr tingling hands bilaterally and felt presyncope (blurred vision and diziness) He ate lunch just prior to this He did not fall and there was no HT. Per pt he said his said he did not loose conciousness but doesnt recall events at home He does remember ambulance transport and had work up at [facility] No imaging completed per pt but said + EKG and blood fine (No records in system) He was told high sugar and has been on his metformin BID but has been only taking once a day (started going to gym so eh decreased dose) He said he has been working out for 1 month Was told in ER that blood pressure was high as well (pt did not know this and is not on any medicine for it) Patient does not check his sugars at home due to a broken monitor He said he did not take metformin today Pt said now his mouth is dry. Denies difficulty swallowing or dyspnea He feels nauseous without vomiting Drinking water No diarrhea or abdominal pain No CP or SOB Today patient had coffee and water this am He does admit to an episode of palpitations this am lasting a minute [facility] Medical History No pertinent past medical history Surgical History Hx of colonoscopy H/O esophagogastroduodenoscopy Family History Mother Diabetes Father No problems noted. 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 Current occupational exposures/hazards: No Cognitive needs: No Hearing needs: No Vision needs: No Review of Systems Const Denies chills, Reports fatigue, Denies fever(s) and Denies weight loss Eyes Denies change in vision ENT Reports dizziness, Reports dry mouth, Denies otalgia, Denies nasal obstruction and Denies sore throat Card Denies chest pain, Denies dyspnea and Reports other (palpitations in the am) Resp Denies cough and Denies dyspnea GI Denies abdominal pain, Denies diarrhea, Reports nausea and Denies vomiting Denies difficulty urinating Musc Denies back pain Skin/Breast Denies rash Neuro Denies confusion, Reports dizziness, Denies focal weakness and Reports paresthesias (hands yesterday) Psych Denies confusion Endo Reports fatigue Physical Exam Vital Signs: Last Vital Signs Temp 98.9 F 01/19/25 12:29 Pulse 64 01/19/25 12:29 BP 136/100 H 01/19/25 12:29 Pulse Ox 98 01/19/25 12:29 Oxygen Delivery Method Room Air 01/19/25 12:29 BMI result Body Mass Index 27.4 General: Non-toxic, NAD. Speaking full sentences. Skin: Warm dry throughout Eye: EOMI, PERRL HENT: Airway patent. Uvula midline. No pharyngeal erythema or edema. 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 Mucosa moist Bilateral canals clear. TM non-erythematous, non-bulging. No TM perforation or hemotympanum noted. Respiratory: CTA bilaterally. No wheezes, rales or rhonchi Cardiac: RRR. No murmur. Legs symmetrical bilaterally. MSK: Full ROM extremities. Neurology: A/O x 3. CN 2-12 grossly intact. Negative pronator drift. No aphasia or facial droop. Gait without abnormality Psych: Good mood and affect Const General: No confusion Orientation/consciousness: No confusion Neuro General: No confusion Results AMB Random Glucose (hemocue) AMB Random Glucose (hemocue) 193 mg/dL Last Edit by Tiffanie Salazar MA on 01/19/25 13:30 fasting Assessment & Plan Assessment & Plan (1) Uncontrolled type 2 diabetes mellitus with hyperglycemia: Code(s): E11.65 - Type 2 diabetes mellitus with hyperglycemia Plan: Patient seen and evaluated + hypertensive on exam today but neurologically intake. Will send message to PCP in regards to close follow up Discussed with pt monitoring sugars and blood pressure and keeping daily log to diacuss with his PCP CBC, CMP, ordered for PCP follow up; some labs were already orderd by PCP on 01/13/25. POC glucose: 198 Refills given on blood sugar reading device and meter set with strips Orthostatic vital signs: BP remained stable throughout without significant drop EKbpm No stemi. NSR. No ischemic changes noted Discussed with pt he needs to monitor sugar BID and take BP for recording once daily He needs to stay hydrated and keep a healthy diet Metformin BID as previously prescribed Call PCP for ER/UC follow up ER if any worsening symptoms continue All questions answered at time of discharge (2) Palpitations: Code(s): R00.2 - Palpitations Plan: EKG no stemi. See above Orders: Orders AMB Random Glucose (hemocue) Today Z13.9 - Encounter for screening, unspecified Comprehensive Met. Panel Today E11.65 - Type 2 diabetes mellitus with hyperglycemia Complete Blood Count Auto Diff Today E11.65 - Type 2 diabetes mellitus with hyperglycemia Medications: Refilled 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 meter (FreeStyle Lite Meter kit) DX: E11.9, test blood sugar 2 times a day, duration 999 days 1 ea 0RF E11.65 - Type 2 diabetes mellitus with hyperglycemia, E11.9 - Type 2 diabetes mellitus without complications 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,beck operator,cont (FreeStyle Melissa 3 Sunol) As directed 1 ea 1RF E11.8 - Type 2 diabetes mellitus with unspecified complications, F40.231 - Fear of injections and transfusions 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 sensor (FreeStyle Melissa 3 Sensor device) As directed 2 ea 11RF E11.8 - Type 2 diabetes mellitus with unspecified complications, F40.231 - Fear of injections and transfusions blood sugar diagnostic (FreeStyle Lite Strips) DX: E11.9, test blood sugar 2 times a day, 90 days 200 ea 4RF E11.65 - Type 2 diabetes mellitus with hyperglycemia, E11.9 - Type 2 diabetes mellitus without complications Coding Level of Care Code Est Pt Level 4 (99892) Diagnoses Uncontrolled type 2 diabetes mellitus with hyperglycemia E11.65 Palpitations R00.2
[2025-01-19 13:27] VITALS: BP 126/100; PULSE 88; O2SAT 98
[2025-01-19 13:28] VITALS: BP 132/100; BP 138/100; PULSE 77; O2SAT 96; O2SAT 98
--- OUTSIDE RECORDS SUMMARY | 2025-01-19 13:28 | XMS_ITS | Continuity of Care Document ---
Author Name [facility] Organization [facility] Care Team Providers Care [employer] Name Role Phone [facility] Unavailable Unavailable Encounters Combined list of: 1) Encounters from [facility] facilities going backup to the last 18 months, not all [place] inpatient encounters are included; 2) Encounters from the [facility] facilities going backup to 280 months. Location Location Details Encounter Type Encounter Number Reason For Visit Attending Provider ADM Date DC Date Status Disposition Source Ambulator y Pharmacy Lifetime Pharmacy [id number] 12/31 Ambulat ory Pharmac y [address] [facility] Outside Documentat ion Only [id number] 12/31 Discharge Disposition: Home or Self Care [address] [facility] Procedures Combined list of: 1) Procedures from [facility] facilities going back up to thelast 18 months, not all [place] non-surgical procedures are included; 2) All procedures from the [facility] facilities. Procedure Procedure Type Code Date Perfomer Comments Sourc e No data available for this section Ambulatory P harmacy Social History Combined list of available smoking, tobacco, and other social history from [facility] facilities. Social History Type Response Date Comment Sourc e Sexual Orientation Ambula tory Pharmacy Gender identity Ambulator y Pharmacy Sex Representation Male (finding) Un known Organization Assessment and Plan Combined list of future care activities from [facility] facilities (e.g., assessment and plan notes, appointments, orders, and referrals). Additional future care activities may be listed in the Plan of Care section. Result Assessment and Plan Date Source Assessment and Plan No data available for this section 01/19/2025 Ambulatory Pharmacy Functional Status Combined list of recent functional and cognitive assessments recorded at [facility] ([place] Functional [place] Measurement (FIM) Scale: 1 = Total Assistance (Subject = 0% +), 2 = Maximal Assistance (Subject = 25% +), 3 = Moderate Assistance (Subject = 50% +), 4 = Minimal Assistance (Subject = 75% +), 5 = Supervision, 6 = Modified [place] (Device), 7 = Complete [place] (Timely, Safely). Assessment Date/Time Source Assessment Type Assessment Skill Assessment Score Assessment Details No data available for this section
--- OUTSIDE RECORDS SUMMARY | 2025-01-19 13:30 | XMS_ITS | Data Portability ---
Author Organization VERITO Mixon s, [address] Address [address] [place] [phone] Assessment No assessment recorded. Plan of Treatment Reminders Order Date Submit Date Provider Last Modified By Organization Details Last Modified Time Details Appointments None recorded. Lab measles + mumps + rubella virus IgG panel, QN, serum or plasma 2022 023 [facility]note 2], [address] [place], [address], 3 10:06:18 hepatitis B surface Ab, quantitativ e, serum 2022 023 [facility]), [address] [place], [address], 3 16:06:45 vzv (varicella- zoster) igg+igm Ab, serum 2022 023 [facility]note 2], [address] [place], [address], 3 14:07:20 Mycobacteri um tuberculosi s stimulated gamma interferon, qual, blood 2022 023 [facility]), [address] [place], [address], 3 22:05:57 Referral None recorded. Procedures None [...] 0.99 Immun e >0.99 Not Available [facility] ([facility]) [address] [facility], [place], [place], [address], 09/04/2022 10:06:18 09/03/19 23 09/04/2022 MEASL ES/MU MPS/R UBELL A IMMUN ITY measles antibodies, IgG 206.0 AU/mL immune >16.4 Negat jaquelin <13.5 Equiv ocal 13.5 - 16.4 Posit jaquelin >16.4 Prese nce of antib odies to Rubeo la is presu mptiv e evide nce of immun ity excep t when acute infec tion is suspe cted. Not Available [facility] ([facility]) [address] [facility], [place], [place], [address], 09/04/2022 10:06:18 09/03/19 23 09/04/2022 MEASL ES/MU MPS/R UBELL A IMMUN ITY mumps abs, IgG 286.0 AU/mL immune >10.9 Negat jaquelin <9.0 Equiv ocal 9.0 - 10.9 Posit jaquelin >10.9 A posit jaquelin resul t gener ally indic ates past expos ure to Mumps virus or previ ous vacci natio n. Not Available [facility] ([facility]) [address] [facility], [place], [place], [address], 09/04/2022 10:06:18 09/03/19 23 09/04/2022 VARIC LILIAN [...] stage of disea se. Not Available [facility] ([facility]) [address] [place], [address], 09/04/2022 14:07:19 09/03/19 23 09/04/2022 VARIC LILIAN ZOSTE R ABS, IGG/I GM varicella-zo ster Ab, IgM <0.91 index 0.00-0 .90 Negat jaquelin <0.91 Borde rline 0.91 - 1.09 Posit jaquelin >1.09 Not Available [facility] ([facility]) [address] [facility], [place], [place], [address], 09/04/2022 14:07:19 09/03/19 23 09/04/2022 HEPAT ITIS B SURF AB QUANT hepatitis B surf Ab quant <3.1 mIU/m L immuni ty>9.9 below low normal Statu s of Immun ity Anti- HBs Level ----- ----- ----- --- ----- ----- ---- Incon siste nt with Immun ity 0.0 - 9.9 Consi stent with Immun ity >9.9 Not Available [facility] ([facility]) [address] [facility], [place], [place], [address], 09/04/2022 16:06:45 09/03/19 23 09/05/2022 QUANT IFERO N-TB GOLD PLUS quantiferon incubation INCUBA TION PERFOR MED. Not Available [facility] ([facility]) [address] [place], [address], 09/05/2022 22:05:57 09/03/19 23 09/05/2022 QUANT IFERO [...] ol for the test. Not Available [facility] ([facility]) [address] [place], [address], 09/05/2022 22:05:57 09/03/19 23 09/05/2022 QUANT IFERO N-TB GOLD PLUS quantiferon TB1 Ag value 0.72 IU/mL Not Available [facility] ([facility]) [address] [place], [address], 09/05/2022 22:05:57 09/03/19 23 09/05/2022 QUANT IFERO N-TB GOLD PLUS quantiferon TB2 Ag value 1.17 IU/mL Not Available [facility] ([facility]) [address] [place], [address], 09/05/2022 22:05:57 09/03/19 23 09/05/2022 QUANT IFERO N-TB GOLD PLUS quantiferon nil value 0.10 IU/mL Not Available [facility] ([facility]) [address] [place], [address], 09/05/2022 22:05:57 09/03/19 23 09/05/2022 QUANT IFERO N-TB GOLD PLUS quantiferon mitogen value >10.00 IU/mL Not Available [facility] ([facility]) [address] [place], [address], 09/05/2022 22:05:57 09/03/19 23 09/05/2022 QUANT IFERO [...] y metho dolog y Not Available [facility] ([facility]) [address] [facility], [place], [place], [address], 09/05/2022 22:05:57 Result Notes None recorded. Procedures [...] Time Tdap 09/03/2022 completed Salome Cat MD [address] [place] [address], [phone], [place] - [facility] 09/03/2022 11:45:31 Past Encounters Encounter ID Performer Location Encounter Start Date Encounter Closed Date Diagnosis/Indication Diagnosis SNOMED-CT Code Diagnosis ICD10 Code Diagnosis Note [id number] Salome Cat MD [address] [facility] [address] [place] [address] 09/03/2022 09:17:47 09/03/2022 11:46:43 Tuberculosis screening 476168231 Z11.1 History an d physical examination, occupation 601697162 Z02.1 Administra tion of diphtheria, pertussis, and tetanus vaccine 004442280 Z23 [id number] Salome Cat MD [address] [facility] [address] [facility] [place] [address] 09/04/2022 14:40:26 09/04/2022 14:58:07 History and physical examination, occupation 609246611 Z02.1 Health Concerns Section Related Observation LastModified by Organization Detai ls LastModified Time None Recorded Concern Status LastModified by Organization Details LastModified Time None Recorded Advance Directives Directive None Recorded Payers Insurance Date Sequence Insurance Name Policy Number Policy Dodd Covered Member ID Dodd Member ID Guarantor Name 09/03/2022 [facility] Cornelio De La Garza 09/04/2022 [employer] Cornelio De La Garza
== END 2025-01-19 13:51 | disposition home or self-care (01) ==
PROVIDERS: PCP Family Medicine; Visit Provider Physician Assistant
DX: E11.65 Type 2 diabetes mellitus with hyperglycemia (principal); R00.2 Palpitations; Z13.9 Encounter for screening, unspecified

== ENCOUNTER 2025-02-10 11:10 | Outpatient (AMB) | payer OTHER, SELFPAY ==
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
[2025-02-10 11:31] VITALS: BP 120/80; PULSE 60; RESP 10; TEMP 36.7; O2SAT 93; BMI 26.7
--- OUTSIDE RECORDS SUMMARY | 2025-02-10 11:58 | XMS_ITS | Continuity of Care Document ---
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 Location Location Details Encounter Type Encounter Number Reason For Visit Attending Provider ADM Date DC Date Status Disposition Source Ambulator y Pharmacy [facility] [id number] 12/31 Ambulat ory Pharmac y [id number] [facility] Outside Documentat ion Only [id number] 12/31 Discharge Disposition: Home or Self Care [id number] [facility] Procedures Combined list of: 1) Procedures from [facility] facilities going back up to thelast 18 months, not all [place] non-surgical procedures are included; 2) All procedures from the [facility] facilities. Procedure Procedure Type Code Date Perfomer Comments Sourc e No data available for this section Ambulatory P harmacy Social History Combined list of available smoking, tobacco, and other social history from [facility] facilities. Social History Type Response Date Comment [...] Plan No data available for this section 02/10/2025 Ambulatory Pharmacy Functional Status Combined list of recent functional and cognitive assessments recorded at [facility] Functional Pitkin Measurement (FIM) Scale: 1 = Total Assistance (Subject = 0% +), 2 = Maximal Assistance (Subject = 25% +), 3 = Moderate Assistance (Subject = 50% +), 4 = Minimal Assistance (Subject = 75% +), 5 = Supervision, 6 = Modified Pitkin (Device), 7 = Complete Pitkin (Timely, Safely). Assessment Date/Time Source Assessment Type Assessment Skill Assessment Score Assessment Details No data available for this section
== END 2025-02-10 13:46 | disposition home or self-care (01) ==
LOC: HO.HMCFM 11:11
PROVIDERS: PCP Family Medicine; Visit Provider Family Medicine
DX: R41.82 Altered mental status, unspecified (principal); E11.9 Type 2 diabetes mellitus without complications; I10 Essential (primary) hypertension; J45.909 Unspecified asthma, uncomplicated

== ENCOUNTER → 2025-02-10 11:10 | Outpatient (BNVA) | payer OTHER, SELFPAY | PROVIDERS: PCP Family Medicine; Visit Provider Family Medicine | DX: E11.65 Type 2 diabetes mellitus with hyperglycemia (principal); R41.82 Altered mental status, unspecified; I10 Essential (primary) hypertension; J45.909 Unspecified asthma, uncomplicated | CPT/HCPCS: 99212 ==

== ENCOUNTER 2025-03-01 09:34 | Outpatient (AMB) | payer OTHER, SELFPAY ==
--- NOTE | 2025-03-01 09:38 | MHC.OFFVIS ---
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 Accompanied by: Self / Same As Patient Allergies No Known Allergies Allergy (Verified 03/01/25 09:43) Medication List - Last Reconciled 03/01/25 by Peg Vaca PA-C albuterol sulfate 90 mcg/actuation (Ventolin HFA) 2 puffs inhalation Q4-6H PRN 30 days blood sugar diagnostic (FreeStyle Lite Strips) DX: E11.9, test blood sugar 2 times a day, 90 days 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 meter (FreeStyle Lite Meter kit) DX: E11.9, test blood sugar 2 times a day, duration 999 days 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 sensor (FreeStyle Melissa 3 Sensor device) As directed 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,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,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 (FreeStyle Melissa 3 [place]) As directed budesonide 180 mcg/actuation (Pulmicort Flexhaler) 1 inh inhalation BID 30 days celecoxib 200 mg PO BID PRN 30 days cetirizine (All Day Allergy (cetirizine)) 10 mg PO DAILY PRN 90 days gemfibrozil 600 mg PO DAILY 90 days lancets (FreeStyle Lancets) As directed latanoprost 0.005% 1 drp ophthalmic (eye) QPM losartan 25 mg PO DAILY metformin 500 mg PO BID 90 days omeprazole 40 mg PO DAILY 30 days HPI HPI Type 2 diabetes mellitus with hyperglycemia: Details: Patient is a 34-year-old male with a significant past medical history of type 2 diabetes, hypertension, hyperlipidemia presenting today for a consultation regarding his diabetes. Endo-dm-he states that he was diagnosed with diabetes about 4 or 5 years ago. He moved to the [facility] about 9 years ago and he states that with the typical [place] diet he had gained weight and developed diabetes. He initially was managed with metformin but has been inconsistent with this. He states that he has been off of it for the last few months because it was causing him to have low blood sugars. He states that sometimes he is waking up with a blood sugar around 56. It is unclear how much of the metformin he was taking at that time. He states generally speaking metformin was very effective for controlling his diabetes. He did not like the idea of being on medication and discontinued this on his own. He states that he did have a CGM for a couple weeks and it was helpful. He would like to try this again. He has a family history of diabetes and believes his mother has type 2 diabetes. His blood sugars recently have been elevated in his A1c has increased to 8.6. He attributes this to 3rd shift, stress, and increased rice in his diet. Hyperglycemia-fatigue, polyuria, polydipsia. Hypoglycemia-weak, shaky. Treats with juice. CV: Blood pressure today in the office is 150/108. Repeat blood pressure is similar at 150/100. He is asymptomatic. He is supposed to be on losartan 25 mg but states that he has not been taking this recently and needs a script refill. He is attempting to manage cholesterol with diet and gemfibrozil. [facility] Medical History No pertinent past medical history Surgical History Hx of colonoscopy H/O esophagogastroduodenoscopy Family History Mother Diabetes Father No problems noted. 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 Current occupational exposures/hazards: No Cognitive needs: No Hearing needs: No Vision needs: No Physical Exam Vital Signs: Last Vital Signs Pulse 83 03/01/25 09:39 BP 150/108 H 03/01/25 09:39 Pulse Ox 96 03/01/25 09:39 Oxygen Delivery Method Room Air 03/01/25 09:39 BMI result Body Mass Index 26.7 Office Procedures AMB Patient Education/Training AMB Patient Education/Training Documentation: Patient was educated about Trulicity. Pt is aware this is given once per week. Advised patient to write this done on a calendar or there is a weekly calendar located on the inside cover of the box that Trulicity is dispensed in. Pt is aware that each Trulicity pen is for one time use. Pt was educated on proper storage, hand washing, injection preparation, administration and disposal. Patient was advised to keep the Trulicity in the fridge. Patient was educated on Patient advised this can be given in the abdomen or thighs. In regards to the abdomen, the patient is aware to keep 2 inches away from the umbilicus. Advised with the back of the arms they need to have someone else administer injection. Pt aware he needs to rotate his sites in order to avoid scar tissue build up and to ensure medication is absorbed fully. Patient is aware to avoid any areas that are open, bruised, scars or are otherwise not clean and intact. Pt advised the following regarding steps to inject Trulicity. 1. Wash your hands and clean the site of injection with an alcohol swab. 2. Uncap the pen by pulling the base cap straight off and disposing in the regular trash. 3. Place the Trulicity at your site of injection and unlock by turning the lock ring. 4. Press and hold the green injection button. You will hear a click 5. Continue to hold firmly until you hear a second click about 5-10 seconds. 6. Remove the pen from your skin and dispose of Trulicity in a sharps container. Patient advised to call with any side effects such as nausea, vomiting, abdominal pain or with any low blood sugars. Pt also advised to call if there are any site reactions such as redness, swelling, tenderness in the area that is not resolved over time. Reviewed signs and symptoms of hypoglycemia such as shakiness, sweating, dizziness or tremors. Patient advised to check via fingerstick when this happens. Patient confirms has a glucometer at home and is aware of how to use it. Patient aware to call the office with any other concerns or questions Results AMB Hemoglobin A1c AMB Hemoglobin A1c 8.6 % Last Edit by KATELYN Buck on 03/01/25 09:58 Results Reviewed Results Reviewed: Laboratory Last Values Glucose (Clinic) 167 mg/dL (60-115) H 03/01/25 09:45 Hgb A1c (Clinic) 8.6 % (4.0-6.0) H 03/01/25 09:49 Laboratory Tests 08/31/24 01/19/25 11:23 13:45 Creatinine 0.82 Estimated GFR > 60 Fasting Glucose 165 H Hgb A1c (Clinic) 8.0 H Triglycerides 147 Cholesterol 145 LDL Cholesterol, Calc 76 HDL Cholesterol 40 L Urine Creatinine 19.20 Urine Microalbumin 8.0 Microalb/Creat Ratio 41.6 H Assessment & Plan Assessment & Plan (1) Uncontrolled type 2 diabetes mellitus with hypoglycemia: Code(s): E11.649 - Type 2 diabetes mellitus with hypoglycemia without coma Category: Medical Plan: 75 minutes today spent in direct patient care, coordination of care, chart review. We reviewed the pathophysiology of diabetes, the differences between type 1 and type 2 diabetes and complications associated with diabetes including but not limited to kidney disease, blindness, increased risk of heart attack and stroke. Reviewed signs and symptoms of hyper and hypoglycemia that would require emergent medical treatment. Rule of 15 reviewed I did have him download the Melissa 3 evette today. I did provide him a Melissa 3+ sensor in the office. melissa 3+ ordered today-discussed that this may not be covered by insurance given that he is not on insulin but he has been hypoglycemic so we will try to get it approved. Will start trulicity 0.75 mg weekly- discussed risks and benefits and adverse effects restart metformin 500 mg bid He was educated today on how to use Trulicity. He received a demonstration. Labs ordered today. We will do a follow up in a few months. Sooner if needed. Patient understands and agrees with this plan (2) Hypertension: Code(s): I10 - Essential (primary) hypertension Category: Medical Plan: I will restart losartan 25 mg. Advised patient to follow up to have his blood pressure rechecked by the nurses in [place]. He states he we will reach out to the [place] department and book this. I also sent a message to the nursing pool to reach out to patient. Orders: Orders AMB Hemoglobin A1c Today E11.9 - Type 2 diabetes mellitus without complications, Z13.9 - Encounter for screening, unspecified Glutamic acid decarboxylase Ab Today E11.649 - Type 2 diabetes mellitus with hypoglycemia without coma Islet Cell Antibody Scrn/Titer Today E11.649 - Type 2 diabetes mellitus with hypoglycemia without coma C Peptide Today E11.649 - Type 2 diabetes mellitus with hypoglycemia without coma AMB Patient Education/Training Session Today E11.649 - Type 2 diabetes mellitus with hypoglycemia without coma Medications: New 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 sensor (FreeStyle Melissa 3 Plus Sensor device) Use daily As directed to monitor glucose 2 ea 5RF E08.29 - Diabetes mellitus due to underlying condition with other diabetic kidney complication, R80.9 - Proteinuria, unspecified, 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
[2025-03-01 09:39] VITALS: BP 150/108; PULSE 83; O2SAT 96; BMI 26.7
[2025-03-01 09:49] LABS: Glucose, Whole Blood 167 mg/dL (60-115)
== END 2025-03-01 10:55 | disposition home or self-care (01) ==
LOC: HO.ENCR 09:35
PROVIDERS: PCP Family Medicine; Visit Provider Physician Assistant
DX: E11.649 Type 2 diabetes mellitus with hypoglycemia without coma (principal); E11.9 Type 2 diabetes mellitus without complications; I10 Essential (primary) hypertension; Z13.9 Encounter for screening, unspecified

== ENCOUNTER → 2025-03-01 09:34 | Outpatient (BNVA) | payer OTHER, SELFPAY | PROVIDERS: PCP Family Medicine; Visit Provider Physician Assistant | DX: E11.649 Type 2 diabetes mellitus with hypoglycemia without coma (principal); E11.29 Type 2 diabetes mellitus with other diabetic kidney complication; I10 Essential (primary) hypertension; E78.5 Hyperlipidemia, unspecified; F40.231 Fear of injections and transfusions; R80.9 Proteinuria, unspecified; Z79.4 Long term (current) use of insulin; Z71.89 Other specified counseling | CPT/HCPCS: 82947; 83036; 99212 ==

== ENCOUNTER 2025-03-25 10:24 | Outpatient (REF) | payer OTHER, SELFPAY ==
[2025-03-25 14:42] LABS: MANUAL DIFF FLAG NO
[2025-03-25 14:46] LABS: Hematocrit 40.9 % (42.0-52.0); Hemoglobin 14.1 g/dl (14.0-18.0); Imm Gran Abs Auto 0.02 X10*3/uL (0.00-0.03); Imm Gran Pct Auto 0.3 % (0.0-0.4); Lymphocytes Absolute Auto 2.4 X10*3/uL (1.2-4.9); Mean Corpuscular HGB Conc 34.5 g/dl (31.0-36.0); Mean Corpuscular Hemoglobin 30.9 pg (27.0-33.0); Mean Corpuscular Volume 89.7 fL (80.0-98.0); NRBC Abs Auto 0.000 X10*3/uL (0.0-0.012); NRBC Pct Auto 0.0 /100WBC (0.0-0.2); Platelet Count 383 X10*3/uL (160-400); Red Blood Count 4.56 X10*6/uL (4.60-5.80); White Blood Count 6.4 X10*3/uL (4.8-10.8)
[2025-03-25 15:04] LABS: Alanine Aminotransferase 26 U/L (0-40); Albumin Level 4.9 g/dL (3.5-5.0); Alkaline Phosphatase 66 U/L (39-117); Anion Gap 11 (12-20); Aspartate Amino Transferase 24 U/L (5-37); Blood Urea Nitrogen 13 mg/dL (9-16); Calcium 9.5 mg/dL (8.4-10.2); Carbon Dioxide 25 mmol/L (22-29); Chloride 107 mmol/L (96-108); Estimated Glomerular Filt Rate > 60; Potassium 4.0 mmol/L (3.3-5.1); Sodium 139 mmol/L (135-145); Total Protein 7.9 g/dL (6.5-8.0)
== END 2025-03-25 10:25 | disposition home or self-care (01) ==
LOC: HO.WFDLDS 10:24
PROVIDERS: Referring Provider Physician Assistant; Visit Provider Physician Assistant
DX: E11.65 Type 2 diabetes mellitus with hyperglycemia (principal); E11.649 Type 2 diabetes mellitus with hypoglycemia without coma
CPT/HCPCS: 36415; 80053; 84681; 85025; 86341

== ENCOUNTER 2025-04-29 15:33 | Outpatient (AMB) | payer OTHER, SELFPAY ==
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
[2025-04-29 15:54] VITALS: BP 130/90; PULSE 76; RESP 18; TEMP 37.1; O2SAT 97; BMI 27.1
--- OUTSIDE RECORDS SUMMARY | 2025-04-29 19:12 | XMS_ITS | Data Portability ---
Author Organization VERITO Mixon s, [address] Address [address] [place] [id number] Assessment No assessment recorded. Plan of Treatment Reminders Order Date Submit Date Provider Last Modified By Organization Details Last Modified Time Details Appointments None recorded. Lab measles + mumps + rubella virus IgG panel, QN, serum or plasma 2022 023 [facility], [address] [place], [address], 3 10:06:18 hepatitis B surface Ab, quantitativ e, serum 2022 023 [facility]), [address] [place], [address], 3 16:06:45 vzv (varicella- zoster) igg+igm Ab, serum 2022 023 [facility], [address] [place], [address], 3 14:07:20 Mycobacteri um tuberculosi s stimulated gamma interferon, qual, blood 2022 023 [facility]), [address] [place], [address], 3 22:05:57 Referral None recorded. Procedures None [...] 0.99 Immun e >0.99 Not Available [facility] ([facility]) [address] [facility], [place], [address], 09/04/2022 10:06:18 09/03/19 23 09/04/2022 MEASL ES/MU MPS/R UBELL A IMMUN ITY measles antibodies, IgG 206.0 AU/mL immune >16.4 Negat jaquelin <13.5 Equiv ocal 13.5 - 16.4 Posit jaquelin >16.4 Prese nce of antib odies to Rubeo la is presu mptiv e evide nce of immun ity excep t when acute infec tion is suspe cted. Not Available [facility] ([facility]) [address] [facility], [place], [address], 09/04/2022 10:06:18 09/03/19 23 09/04/2022 MEASL ES/MU MPS/R UBELL A IMMUN ITY mumps abs, IgG 286.0 AU/mL immune >10.9 Negat jaquelin <9.0 Equiv ocal 9.0 - 10.9 Posit jaquelin >10.9 A posit jaquelin resul t gener ally indic ates past expos ure to Mumps virus or previ ous vacci natio n. Not Available [facility] ([facility]) [address] [facility], [place], [address], 09/04/2022 10:06:18 09/03/19 23 09/04/2022 VARIC LILIAN [...] stage of disea se. Not Available [facility] ([facility]) [address] [place], [address], 09/04/2022 14:07:19 09/03/19 23 09/04/2022 VARIC LILIAN ZOSTE R ABS, IGG/I GM varicella-zo ster Ab, IgM <0.91 index 0.00-0 .90 Negat jaquelin <0.91 Borde rline 0.91 - 1.09 Posit jaquelin >1.09 Not Available [facility] ([facility]) [address] [facility], [place], [address], 09/04/2022 14:07:19 09/03/19 23 09/04/2022 HEPAT ITIS B SURF AB QUANT hepatitis B surf Ab quant <3.1 mIU/m L immuni ty>9.9 below low normal Statu s of Immun ity Anti- HBs Level ----- ----- ----- --- ----- ----- ---- Incon siste nt with Immun ity 0.0 - 9.9 Consi stent with Immun ity >9.9 Not Available [facility] ([facility]) [address] [facility], [place], [address], 09/04/2022 16:06:45 09/03/19 23 09/05/2022 QUANT IFERO N-TB GOLD PLUS quantiferon incubation INCUBA TION PERFOR MED. Not Available [facility] ([facility]) [address] [place], [address], 09/05/2022 22:05:57 09/03/19 23 09/05/2022 QUANT IFERO [...] ol for the test. Not Available [facility] ([facility]) [address] [place], [address], 09/05/2022 22:05:57 09/03/19 23 09/05/2022 QUANT IFERO N-TB GOLD PLUS quantiferon TB1 Ag value 0.72 IU/mL Not Available [facility] ([facility]) [address] [place], [address], 09/05/2022 22:05:57 09/03/19 23 09/05/2022 QUANT IFERO N-TB GOLD PLUS quantiferon TB2 Ag value 1.17 IU/mL Not Available [facility] ([facility]) [address] [place], [address], 09/05/2022 22:05:57 09/03/19 23 09/05/2022 QUANT IFERO N-TB GOLD PLUS quantiferon nil value 0.10 IU/mL Not Available [facility] ([facility]) [address] [place], [address], 09/05/2022 22:05:57 09/03/19 23 09/05/2022 QUANT IFERO N-TB GOLD PLUS quantiferon mitogen value >10.00 IU/mL Not Available [facility] ([facility]) [address] [place], [address], 09/05/2022 22:05:57 09/03/19 23 09/05/2022 QUANT IFERO [...] y metho dolog y Not Available [facility] ([facility]) [address] [facility], [place], [address], 09/05/2022 22:05:57 Result Notes None recorded. Procedures [...] Time Tdap 09/03/2022 completed Salome Cat MD [address] [place] [address], [id number], [place] - [facility] 09/03/2022 11:45:31 Past Encounters Encounter ID Performer Location Encounter Start Date Encounter Closed Date Diagnosis/Indication Diagnosis SNOMED-CT Code Diagnosis ICD10 Code Diagnosis IMO Codes Diagnosis Note [id number] [place] [address] [facility] [address] [place] [address] 09/03/2022 09:17:47 09/03/2022 11:46:43 Tuberculosis screening 122287900 Z11.1 History an d physical examination, occupation 598499114 Z02.1 Administra tion of diphtheria, pertussis, and tetanus vaccine 562071356 Z23 [id number] Salome Cta [place] [address] [facility] [address] [place] [address] 09/04/2022 14:40:26 09/04/2022 14:58:07 History and physical examination, occupation 652268568 Z02.1 Health Concerns Section Related Observation LastModified by Organization Detai ls LastModified Time None Recorded Concern Status LastModified by Organization Details LastModified Time None Recorded Advance Directives Directive None Recorded Payers Insurance Date Sequence Insurance Name Policy Number Policy Dodd Covered Member ID Dodd Member ID Guarantor Name 09/03/2022 [facility] Cornelio De La Garza 09/04/2022 [employer] Cornelio De La Garza
== END 2025-04-29 17:05 | disposition home or self-care (01) ==
LOC: HO.HMCFM 15:34
PROVIDERS: PCP Family Medicine; Visit Provider Family Medicine
DX: I10 Essential (primary) hypertension (principal); E11.65 Type 2 diabetes mellitus with hyperglycemia; X58.XXXA Exposure to other specified factors, initial encounter; Z00.00 Encounter for general adult medical examination without abnormal findings

== ENCOUNTER → 2025-04-29 15:33 | Outpatient (BNVA) | payer OTHER, SELFPAY | PROVIDERS: PCP Family Medicine; Visit Provider Family Medicine | DX: Z00.00 Encounter for general adult medical examination without abnormal findings (principal); I10 Essential (primary) hypertension; E11.65 Type 2 diabetes mellitus with hyperglycemia; T14.90XA Injury, unspecified, initial encounter; E16.2 Hypoglycemia, unspecified; R80.9 Proteinuria, unspecified; E11.29 Type 2 diabetes mellitus with other diabetic kidney complication; W46.0XXA Contact with hypodermic needle, initial encounter; Y93.9 Activity, unspecified; Y92.9 Unspecified place or not applicable; Y99.9 Unspecified external cause status; Z79.4 Long term (current) use of insulin | CPT/HCPCS: 83036; 96127 ==

== ENCOUNTER 2025-05-17 09:05 | Outpatient (REF) | payer OTHER, SELFPAY ==
--- OUTSIDE RECORDS SUMMARY | 2025-05-17 09:46 | XMS_ITS | Data Portability ---
Author Organization VERITO Mixon s, [address] Address [address] [place] [phone] Assessment No assessment recorded. Plan of Treatment Reminders Order Date Submit Date Provider Last Modified By Organization Details Last Modified Time Details Appointments None recorded. Lab measles + mumps + rubella virus IgG panel, QN, serum or plasma 2022 023 [facility][note 3], [address] [place], [address], 3 10:06:18 hepatitis B surface Ab, quantitativ e, serum 2022 023 [facility]), [address] [place], [address], 3 16:06:45 vzv (varicella- zoster) igg+igm Ab, serum 2022 023 [facility]), [address] [place], [address], 3 14:07:20 Mycobacteri um tuberculosi s stimulated gamma interferon, qual, blood 2022 023 [facility]), [address] [place], [address], 3 22:05:57 Referral None recorded. Procedures None [...] 0.99 Immun e >0.99 Not Available [facility] ([facility]) [address] [facility], [place], [address], 09/04/2022 10:06:18 09/03/19 23 09/04/2022 MEASL ES/MU MPS/R UBELL A IMMUN ITY measles antibodies, IgG 206.0 AU/mL immune >16.4 Negat jaquelin <13.5 Equiv ocal 13.5 - 16.4 Posit jaquelin >16.4 Prese nce of antib odies to Rubeo la is presu mptiv e evide nce of immun ity excep t when acute infec tion is suspe cted. Not Available [facility] ([facility]) [address] [facility], [place], [address], 09/04/2022 10:06:18 09/03/19 23 09/04/2022 MEASL ES/MU MPS/R UBELL A IMMUN ITY mumps abs, IgG 286.0 AU/mL immune >10.9 Negat jaquelin <9.0 Equiv ocal 9.0 - 10.9 Posit jaquelin >10.9 A posit jaquelin resul t gener ally indic ates past expos ure to Mumps virus or previ ous vacci natio n. Not Available [facility] ([facility]) [address] [facility], [place], [address], 09/04/2022 10:06:18 09/03/19 23 09/04/2022 VARIC LILIAN [...] stage of disea se. Not Available [facility] ([facility]) [address] [place], [address], 09/04/2022 14:07:19 09/03/19 23 09/04/2022 VARIC LILIAN ZOSTE R ABS, IGG/I GM varicella-zo ster Ab, IgM <0.91 index 0.00-0 .90 Negat jaquelin <0.91 Borde rline 0.91 - 1.09 Posit jaquelin >1.09 Not Available [facility] ([facility]) [address] [facility], [place], [address], 09/04/2022 14:07:19 09/03/19 23 09/04/2022 HEPAT ITIS B SURF AB QUANT hepatitis B surf Ab quant <3.1 mIU/m L immuni ty>9.9 below low normal Statu s of Immun ity Anti- HBs Level ----- ----- ----- --- ----- ----- ---- Incon siste nt with Immun ity 0.0 - 9.9 Consi stent with Immun ity >9.9 Not Available [facility] ([facility]) [address] [facility], [place], [address], 09/04/2022 16:06:45 09/03/19 23 09/05/2022 QUANT IFERO N-TB GOLD PLUS quantiferon incubation INCUBA TION PERFOR MED. Not Available [facility] ([facility]) [address] [place], [address], 09/05/2022 22:05:57 09/03/19 23 09/05/2022 QUANT IFERO [...] ol for the test. Not Available [facility] ([facility]) [address] [place], [address], 09/05/2022 22:05:57 09/03/19 23 09/05/2022 QUANT IFERO N-TB GOLD PLUS quantiferon TB1 Ag value 0.72 IU/mL Not Available [facility]) [address] [place], [address], 09/05/2022 22:05:57 09/03/19 23 09/05/2022 QUANT IFERO N-TB GOLD PLUS quantiferon TB2 Ag value 1.17 IU/mL Not Available [facility]) [address] [place], [address], 09/05/2022 22:05:57 09/03/19 23 09/05/2022 QUANT IFERO N-TB GOLD PLUS quantiferon nil value 0.10 IU/mL Not Available [facility] ([facility]) [address] [place], [address], 09/05/2022 22:05:57 09/03/19 23 09/05/2022 QUANT IFERO N-TB GOLD PLUS quantiferon mitogen value >10.00 IU/mL Not Available [facility] ([facility]) [address] [place], [address], 09/05/2022 22:05:57 09/03/19 23 09/05/2022 QUANT IFERO [...] y metho dolog y Not Available [facility] ([facility]) [address] [facility], [place], [address], 09/05/2022 22:05:57 Result Notes None recorded. Procedures [...] Time Tdap 09/03/2022 completed Salome Cat MD [address] [place] [address], [phone], [place] - [facility] 09/03/2022 11:45:31 Past Encounters Encounter ID Performer Location Encounter Start Date Encounter Closed Date Diagnosis/Indication Diagnosis SNOMED-CT Code Diagnosis ICD10 Code Diagnosis IMO Codes Diagnosis Note [id number] Salome Cat [place] [address] [facility] [address] [place] [address] 09/03/2022 09:17:47 09/03/2022 11:46:43 Tuberculosis screening 629426445 Z11.1 History an d physical examination, occupation 570261427 Z02.1 Administra tion of diphtheria, pertussis, and tetanus vaccine 136450152 Z23 [id number] Salome Cat MD [address] [facility] [address] [place] [address] 09/04/2022 14:40:26 09/04/2022 14:58:07 History and physical examination, occupation 242382661 Z02.1 Health Concerns Section Related Observation LastModified by Organization Detai ls LastModified Time None Recorded Concern Status LastModified by Organization Details LastModified Time None Recorded Advance Directives Directive None Recorded Payers Insurance Date Sequence Insurance Name Policy Number Policy Dodd Covered Member ID Dodd Member ID Guarantor Name 09/03/2022 [facility] Cornelio De La Garza 09/04/2022 [employer] Cornelio De La Garza
[2025-05-17 12:59] LABS: HBS Num1 > 1000.00 mIU/mL (0-7.99); HBc Num1 0.09 S/CO (0.00-0.79); HBsAGNum1 0.42 S/CO (0.00-0.99); HIV Num 1 0.06 S/CO (0.00-0.99); Hepatitis B Surface Antigen Negative (Negative); ~HepC Num1 0.16 S/CO (0.00-0.79); ~Hepatitis B Surface Antibody REACTIVE (Nonreactive); ~Hepatitis C Antibody Nonreactive (Nonreactive)
== END 2025-05-17 09:06 | disposition home or self-care (01) ==
LOC: HO.WFDLDS 09:05
PROVIDERS: Visit Provider Family Medicine
DX: Z11.3 Encounter for screening for infections with a predominantly sexual mode of transmission (principal); Z11.4 Encounter for screening for human immunodeficiency virus [HIV]; Z11.59 Encounter for screening for other viral diseases
CPT/HCPCS: 36415; 86704; 86706; 86803; 87340; 87389

== ENCOUNTER 2025-05-31 09:28 | Outpatient (AMB) | payer OTHER, SELFPAY ==
--- NOTE | 2025-05-31 09:37 | MHC.OFFVIS ---
Vital Signs 05/31/25 09:38 Height 5 ft 3 in Weight 152 lb 12.485 oz BMI 27.1 BP 124/96 H Blood Pressure Location Lt brachial Position Sitting Pulse 70 Pulse Source Pulse Oximeter Pulse Oximetry (%) 99 Oxygen Delivery Method Room Air Intake Visit Reasons: DMT2 Follow-UP Intake Note: Patient present today for Type 2 Diabetes Mellitus Last Diabetic eye exam: Approximate 6 months ago Last Podiatry Visit: Doesn't have one Random Glucose: 106 mg/dl HgA1C: 6.4% 04/29/25 [employer] Required: No Accompanied by: Self / Same As Patient Allergies No Known Allergies Allergy (Verified 05/31/25 09:46) Medication List - Last Reconciled 05/31/25 by Peg Vaca PA-C albuterol sulfate 90 mcg/actuation (Ventolin HFA) 2 puffs inhalation Q4-6H PRN 30 days blood sugar diagnostic (FreeStyle Lite Strips) DX: E11.9, test blood sugar 2 times a day, 90 days 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 meter (FreeStyle Lite Meter kit) DX: E11.9, test blood sugar 2 times a day, duration 999 days 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 sensor (FreeStyle Melissa 3 Plus Sensor device) Use daily As directed to monitor glucose 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,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,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 (FreeStyle Melissa 3 [place]) As directed budesonide 180 mcg/actuation (Pulmicort Flexhaler) 1 inh inhalation BID 30 days celecoxib 200 mg PO BID PRN 30 days cetirizine (All Day Allergy (cetirizine)) 10 mg PO DAILY PRN 90 days dolutegravir (Tivicay) 50 mg PO DAILY dulaglutide (Trulicity) 1.5 mg (0.5 mL) subcut QWEEK [id number] 600-200-300 mg 1 tab PO BEDTIME gemfibrozil 600 mg PO DAILY 90 days lancets (FreeStyle Lancets) As directed latanoprost 0.005% 1 drp ophthalmic (eye) QPM losartan 50 mg PO DAILY 90 days omeprazole 40 mg PO DAILY 30 days HPI HPI DMT2 Follow-UP: Details: Patient is a 34-year-old male with a significant past medical history of type 2 diabetes, hypertension, hyperlipidemia presenting today for a consultation regarding his diabetes. Endo-dm-he states that he was diagnosed with diabetes around 2019. His previous A1c was 8.6. Most recently it is now 6.4. He is on trulicity .75 mg weekly and metformin 500 mg twice a day. He temporarily worried CGM and found that that was helpful but does not think he needs it again. He has been focused with his diet. He would like to come off of metformin He has a family history of diabetes and believes his mother has type 2 diabetes. Hyperglycemia-fatigue, polyuria, polydipsia. Hypoglycemia-weak, shaky. Treats with juice. CV: Blood pressure today in the office is 124/96. He is asymptomatic. He is supposed to be on losartan 50 mg but states that he has not been taking this for the last day or 2. He is attempting to manage cholesterol with diet and gemfibrozil. [facility] Medical History No pertinent past medical history Surgical History Hx of colonoscopy H/O esophagogastroduodenoscopy Family History Mother Diabetes Father No problems noted. 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 Current occupational exposures/hazards: No Cognitive needs: No Hearing needs: No Vision needs: No Physical Exam Vital Signs: Last Vital Signs Pulse 70 05/31/25 09:38 BP 124/96 H 05/31/25 09:38 Pulse Ox 99 05/31/25 09:38 Oxygen Delivery Method Room Air 05/31/25 09:38 BMI result Body Mass Index 27.1 Const Orientation/consciousness: patient oriented x3 HEENT Ears: hearing grossly normal bilaterally Neck Thyroid: Thyroid normal Lymphatic: no lymphadenopathy noted Resp Auscultation: clear to auscultation bilaterally Cardio Rate: regular rate Rhythm: regular rhythm Heart sounds: S1 normal heart sound present and S2 normal heart sound present Skin General skin exam: no rashes or lesions noted Neuro General: patient oriented x3, gait normal and no focal motor deficits Assessment & Plan Assessment & Plan (1) Diabetes type 2, controlled: Code(s): E11.9 - Type 2 diabetes mellitus without complications Category: Medical Plan: d/c metformin Increase Trulicity to 1.5 mg weekly He will let me know if he develops any intolerances to this Follow up in 3 months. Sooner if needed. Labs prior to appointment. (2) Hypertension: Code(s): I10 - Essential (primary) hypertension Category: Medical Plan: Advised/encouraged compliance with the losartan. Orders: Orders Hemoglobin A1c Today E11.9 - Type 2 diabetes mellitus without complications, I10 - Essential (primary) hypertension, R73.01 - Impaired fasting glucose Microalbumin, Random (w Creat) Today E11.9 - Type 2 diabetes mellitus without complications, I10 - Essential (primary) hypertension Medications: New dulaglutide (Trulicity) 1.5 mg (0.5 mL) subcut QWEEK 2 mL 5RF Discontinued dulaglutide (Trulicity) Discontinued Reason: Doctor's Order 0.75 mg (0.5 mL) subcut QWEEK 2 mL 4RF metformin Discontinued Reason: Doctor's Order 500 mg PO BID 90 days 180 tabs 3RF Coding Level of Care Code Est Pt Level 4 (45426) Diagnoses Diabetes type 2, controlled E11.9 Hypertension I10
[2025-05-31 09:38] VITALS: BP 124/96; PULSE 70; O2SAT 99; BMI 27.1
[2025-05-31 09:54] LABS: Glucose, Whole Blood 106 mg/dL (60-115)
--- OUTSIDE RECORDS SUMMARY | 2025-05-31 10:52 | XMS_ITS | Data Portability ---
Author Organization VERITO Mixon s, [address] Address [address] [place] [phone] Assessment No assessment recorded. Plan of Treatment Reminders Order Date Submit Date Provider Last Modified By Organization Details Last Modified Time Details Appointments None recorded. Lab measles + mumps + rubella virus IgG panel, QN, serum or plasma 2022 023 [facility], [address] [place], [address], 3 10:06:18 hepatitis B surface Ab, quantitativ e, serum 2022 023 [facility]), [address] [place], [address], 3 16:06:45 vzv (varicella- zoster) igg+igm Ab, serum 2022 023 [facility], [address] [place], [address], 3 14:07:20 Mycobacteri um tuberculosi s stimulated gamma interferon, qual, blood 2022 023 [facility]), [address] [place], [address], 3 22:05:57 Referral None recorded. Procedures None [...] Immun e >0.99 Not Available [facility] ([facility]) [address] [facility], [place], [address], 09/04/2022 10:06:18 09/03/19 23 09/04/2022 MEASL ES/MU MPS/R UBELL A IMMUN ITY measles antibodies, IgG 206.0 AU/mL immune >16.4 Negat jaquelin <13.5 Equiv ocal 13.5 - 16.4 Posit jaquelin >16.4 Prese nce of antib odies to Rubeo la is presu mptiv e evide nce of immun ity excep t when acute infec tion is suspe cted. Not Available [facility] ([facility]) [address] [facility], [place], [address], 09/04/2022 10:06:18 09/03/19 23 09/04/2022 MEASL ES/MU MPS/R UBELL A IMMUN ITY mumps abs, IgG 286.0 AU/mL immune >10.9 Negat jaquelin <9.0 Equiv ocal 9.0 - 10.9 Posit jaquelin >10.9 A posit jaquelin resul t gener ally indic ates past expos ure to Mumps virus or previ ous vacci natio n. Not Available [facility] ([facility]) [address] [facility], [place], [address], 09/04/2022 10:06:18 09/03/19 23 09/04/2022 VARIC LILIAN [...] of disea se. Not Available [facility] ([facility]) [address] [place], [address], 09/04/2022 14:07:19 09/03/19 23 09/04/2022 VARIC LILIAN ZOSTE R ABS, IGG/I GM varicella-zo ster Ab, IgM <0.91 index 0.00-0 .90 Negat jaquelin <0.91 Borde rline 0.91 - 1.09 Posit jaquelin >1.09 Not Available [facility] ([facility]) [address] [facility], [place], [address], 09/04/2022 14:07:19 09/03/19 23 09/04/2022 HEPAT ITIS B SURF AB QUANT hepatitis B surf Ab quant <3.1 mIU/m L immuni ty>9.9 below low normal Statu s of Immun ity Anti- HBs Level ----- ----- ----- --- ----- ----- ---- Incon siste nt with Immun ity 0.0 - 9.9 Consi stent with Immun ity >9.9 Not Available [facility] ([facility]) [address] [facility], [place], [address], 09/04/2022 16:06:45 09/03/19 23 09/05/2022 QUANT IFERO N-TB GOLD PLUS quantiferon incubation INCUBA TION PERFOR MED. Not Available [facility] ([facility]) [address] [place], [address], 09/05/2022 22:05:57 09/03/19 23 09/05/2022 QUANT IFERO [...] for the test. Not Available [facility] ([facility]) [address] [place], [address], 09/05/2022 22:05:57 09/03/19 23 09/05/2022 QUANT IFERO N-TB GOLD PLUS quantiferon TB1 Ag value 0.72 IU/mL Not Available [facility]) [address] [place], [address], 09/05/2022 22:05:57 09/03/19 23 09/05/2022 QUANT IFERO N-TB GOLD PLUS quantiferon TB2 Ag value 1.17 IU/mL Not Available [facility]) [address] [place], [address], 09/05/2022 22:05:57 09/03/19 23 09/05/2022 QUANT IFERO N-TB GOLD PLUS quantiferon nil value 0.10 IU/mL Not Available [facility] ([facility]) [address] [place], [address], 09/05/2022 22:05:57 09/03/19 23 09/05/2022 QUANT IFERO N-TB GOLD PLUS quantiferon mitogen value >10.00 IU/mL Not Available [facility] ([facility]) [address] [place], [address], 09/05/2022 22:05:57 09/03/19 23 09/05/2022 QUANT IFERO [...] metho dolog y Not Available [facility] ([facility]) [address] [facility], [place], [address], 09/05/2022 22:05:57 Result Notes None recorded. Procedures [...] Time Tdap 09/03/2022 completed Salome Cat MD [address] [place] [address], [phone], [place] - [facility] 09/03/2022 11:45:31 Past Encounters Encounter ID Performer Location Encounter Start Date Encounter Closed Date Diagnosis/Indication Diagnosis SNOMED-CT Code Diagnosis ICD10 Code Diagnosis IMO Codes Diagnosis Note [id number] Salome Cat MD [address] [facility] [address] [place] [address] 09/03/2022 09:17:47 09/03/2022 11:46:43 Tuberculosis screening 182017974 Z11.1 History an d physical examination, occupation 818542875 Z02.1 Administra tion of diphtheria, pertussis, and tetanus vaccine 220632763 Z23 [id number] Salome Cat MD [address] [facility] [address] [place] [address] 09/04/2022 14:40:26 09/04/2022 14:58:07 History and physical examination, occupation 000779024 Z02.1 Health Concerns Section Related Observation LastModified by Organization Detai ls LastModified Time None Recorded Concern Status LastModified by Organization Details LastModified Time None Recorded Advance Directives Directive None Recorded Payers Insurance Date Sequence Insurance Name Policy Number Policy Dodd Covered Member ID Dodd Member ID Guarantor Name 09/03/2022 [facility] Cornelio De La Garza 09/04/2022 [employer] Cornelio De La Garza
== END 2025-05-31 10:02 | disposition home or self-care (01) ==
LOC: HO.ENCR 09:29
PROVIDERS: PCP Family Medicine; Visit Provider Physician Assistant
DX: E11.9 Type 2 diabetes mellitus without complications (principal); I10 Essential (primary) hypertension

== ENCOUNTER → 2025-05-31 09:28 | Outpatient (BNVA) | payer OTHER, SELFPAY | PROVIDERS: PCP Family Medicine; Visit Provider Physician Assistant | DX: E11.9 Type 2 diabetes mellitus without complications (principal); I10 Essential (primary) hypertension; E78.5 Hyperlipidemia, unspecified; Z79.899 Other long term (current) drug therapy | CPT/HCPCS: 82947; 99212 ==

== ENCOUNTER 2025-06-23 15:14 | Outpatient (AMB) | payer OTHER, SELFPAY ==
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
[2025-06-23 15:29] VITALS: BP 120/74; PULSE 81; RESP 16; TEMP 36.4; O2SAT 96; BMI 26.8
--- OUTSIDE RECORDS SUMMARY | 2025-06-23 20:18 | XMS_ITS | Data Portability ---
Author Organization [facility]IT[facility] Mixon [facility], [address] Address [address] [place] [id number] Assessment No assessment recorded. Plan of Treatment Reminders Order Date Submit Date Provider Last Modified By Organization Details Last Modified Time Details Appointments None recorded. Lab measles + mumps + rubella virus IgG panel, QN, serum or plasma 2022 023 [facility], [address] [place], [address], 3 10:06:18 hepatitis B surface Ab, quantitativ e, serum 2022 023 [facility]), [address] [place], [address], 3 16:06:45 vzv (varicella- zoster) igg+igm Ab, serum 2022 023 [facility], [address] [place], [address], 3 14:07:20 Mycobacteri um tuberculosi s stimulated gamma interferon, qual, blood 2022 023 [facility]), [address] [place], [address], 3 22:05:57 Referral None recorded. Procedures None [...] 0.99 Immun e >0.99 Not Available [facility] ([facility]) [address] [facility], [place], [address], 09/04/2022 10:06:18 09/03/19 23 09/04/2022 MEASL ES/MU MPS/R UBELL A IMMUN ITY measles antibodies, IgG 206.0 AU/mL immune >16.4 Negat jaquelin <13.5 Equiv ocal 13.5 - 16.4 Posit jaquelin >16.4 Prese nce of antib odies to [place] la is presu mptiv e evide nce of immun ity excep t when acute infec tion is suspe cted. Not Available [facility] ([facility]) [address] [facility], [place], [address], 09/04/2022 10:06:18 09/03/19 23 09/04/2022 MEASL ES/MU MPS/R UBELL A IMMUN ITY mumps abs, IgG 286.0 AU/mL immune >10.9 Negat jaquelin <9.0 Equiv ocal 9.0 - 10.9 Posit jaquelin >10.9 A posit jaquelin resul t gener ally indic ates past expos ure to Mumps virus or previ ous vacci natio n. Not Available [facility] ([facility]) [address] [facility], [place], [address], 09/04/2022 10:06:18 09/03/19 23 09/04/2022 VARIC LILIAN [...] stage of disea se. Not Available [facility] ([facility]) [address] [place], [address], 09/04/2022 14:07:19 09/03/19 23 09/04/2022 VARIC LILIAN ZOSTE R ABS, IGG/I GM varicella-zo ster Ab, IgM <0.91 index 0.00-0 .90 Negat jaquelin <0.91 Borde rline 0.91 - 1.09 Posit jaquelin >1.09 Not Available [facility] ([facility]) [address] [facility], [place], [address], 09/04/2022 14:07:19 09/03/19 23 09/04/2022 HEPAT ITIS B SURF AB QUANT hepatitis B surf Ab quant <3.1 mIU/m L immuni ty>9.9 below low normal Statu s of Immun ity Anti- HBs Level ----- ----- ----- --- ----- ----- ---- Incon siste nt with Immun ity 0.0 - 9.9 Consi stent with Immun ity >9.9 Not Available [facility] ([facility]) [address] [facility], [place], [address], 09/04/2022 16:06:45 09/03/19 23 09/05/2022 QUANT IFERO N-TB GOLD PLUS quantiferon incubation INCUBA TION PERFOR MED. Not Available [facility] ([facility]) [address] [place], [address], 09/05/2022 22:05:57 09/03/19 23 09/05/2022 QUANT IFERO [...] ol for the test. Not Available [facility] ([facility]) [address] [place], [address], 09/05/2022 22:05:57 09/03/19 23 09/05/2022 QUANT IFERO N-TB GOLD PLUS quantiferon TB1 Ag value 0.72 IU/mL Not Available [facility] ([facility]) [address] [place], [address], 09/05/2022 22:05:57 09/03/19 23 09/05/2022 QUANT IFERO N-TB GOLD PLUS quantiferon TB2 Ag value 1.17 IU/mL Not Available [facility] ([facility]) [address] [place], [address], 09/05/2022 22:05:57 09/03/19 23 09/05/2022 QUANT IFERO N-TB GOLD PLUS quantiferon nil value 0.10 IU/mL Not Available [facility] ([facility]) [address] [place], [address], 09/05/2022 22:05:57 09/03/19 23 09/05/2022 QUANT IFERO N-TB GOLD PLUS quantiferon mitogen value >10.00 IU/mL Not Available [facility] ([facility]) [address] [place], [address], 09/05/2022 22:05:57 09/03/19 23 09/05/2022 QUANT IFERO [...] y metho dolog y Not Available [facility] ([facility]) [address] [facility], [place], [address], 09/05/2022 22:05:57 Result Notes None recorded. Procedures [...] Time Tdap 09/03/2022 completed Salome Cat MD [address] [place] [address], [phone], [place] - [facility] 09/03/2022 11:45:31 Past Encounters Encounter ID Performer Location Encounter Start Date Encounter Closed Date Diagnosis/Indication Diagnosis SNOMED-CT Code Diagnosis ICD10 Code Diagnosis IMO Codes Diagnosis Note [id number] [place] [address] [facility] [address] [place] [address] 09/03/2022 09:17:47 09/03/2022 11:46:43 Tuberculosis screening 472850465 Z11.1 History an d physical examination, occupation 176496308 Z02.1 Administra tion of diphtheria, pertussis, and tetanus vaccine 708250192 Z23 [id number] [place] [address] [facility] [address] [facility] [place] [address] 09/04/2022 14:40:26 09/04/2022 14:58:07 History and physical examination, occupation 444574607 Z02.1 Health Concerns Section Related Observation LastModified by Organization Detai ls LastModified Time None Recorded Concern Status LastModified by Organization Details LastModified Time None Recorded Advance Directives Directive None Recorded Payers Insurance Date Sequence Insurance Name Policy Number Policy Dodd Covered Member ID Dodd Member ID Guarantor Name 09/03/[address] [facility] Cornelio De La Garza 09/04/2022 [employer] Cornelio De La Garza
== END 2025-06-23 16:33 | disposition home or self-care (01) ==
LOC: HO.HMCFM 15:15
PROVIDERS: PCP Family Medicine; Visit Provider Family Medicine
DX: R06.02 Shortness of breath (principal); V89.2XXA Person injured in unspecified motor-vehicle accident, traffic, initial encounter; M54.9 Dorsalgia, unspecified

== ENCOUNTER → 2025-06-23 15:14 | Outpatient (BNVA) | payer OTHER, SELFPAY | PROVIDERS: PCP Family Medicine; Visit Provider Family Medicine | DX: M54.2 Cervicalgia (principal); M54.9 Dorsalgia, unspecified; R06.02 Shortness of breath; V89.2XXA Person injured in unspecified motor-vehicle accident, traffic, initial encounter | CPT/HCPCS: 99212 ==